=== PATIENT | male | born 1965 | race Caucasian/White ===

== ENCOUNTER 2020-10-21 09:12 | Emergency (ER) | payer MEDICAID, SELFPAY ==
[2020-10-21 09:15] VITALS: BP 117/90; PULSE 58; RESP 15; TEMP 36.8; O2SAT 98; BMI 21.1
[2020-10-21 09:22] VITALS: BP 117/90; PULSE 62; RESP 14; O2SAT 97
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
--- NOTE | 2020-10-21 09:30 | CT_ITS ---
WS: [id number] CT HEAD NONCONTRAST HISTORY: dizziness TECHNIQUE: Contiguous axial imaging performed through the brain in 2.5 mm imaging. Bone and soft tiss ue windows. Sagittal and coronal reformats reviewed. All CT scans at [facility] use at ast one of these dose optimization techniques: automated exposure control; mA and/or kV adjustment pe r patient size (includes targeted exams where dose is matched to clinical indication); or iterative r econstruction. DLP: 801.98 mGy.cm COMPARISON: None available. No acute intracranial hemorrhage, midline shift or mass effect. Large RIGHT MCA territory infarct. Encephalomalacia involving large portion of the RIGHT temporal lob e. There are additional infarcts extending along the RIGHT nagel radiata and through the basal gangl ia. Prior LEFT thalamic lacunar infarct. No new area of sulcal effacement. Ventricles: Mild ex vacuole dilatation of the RIGHT lateral ventricle. Extensive atherosclerotic changes within the intracranial carotid arteries. Abrupt termination of the RIGHT MCA. Paranasal sinuses: As visualized are clear. Mastoid air cells: Well pneumatized. Calvarium and scalp: Skull is intact with no soft tissue edema or swelling. CT/CT head wo con* [id number] IMPRESSION: 1. No acute intracranial hemorrhage or edema. 2. Large remote RIGHT MCA territory infarct with additional lacunar infarcts i n the RIGHT basal ganglia. Prior LEFT thalamic lacunar infarct. 3. No acute intracranial findings.
--- NOTE | 2020-10-21 09:31 | ECG_ITS ---
[facility] Test Date: 2020-10-21 Pat Name: Jhon Wallace Department: Room: Gender: Male Circulator: : 1965 Requested By: Ella Odom Order Number: [id number] Lashon MD: Funmilayo Busch M.D. Measurements Intervals [place] Rate: 53 P: 69 FL: 184 QRS: 63 QRSD: 110 T: 79 QT: 451 QTc: 424 Interpretive Statements SINUS BRADYCARDIA POSSIBLE LEFT ATRIAL ENLARGEMENT [-0.1mV P-WAVE IN V1/V2] MODERATE INTRAVENTRICULAR CONDUCTION DELAY [105+ ms QRS DURATION, 80+ ms Q/S IN V1/V2, NO Q AND 60+ ms R IN I/aVL/V5/V6] No previous ECG available for comparison Electronically Signed On 10-22-2020 18:18:59 CDT by Funmilayo Busch M.D. [email or web address]
[2020-10-21 09:47] LABS: Basophils # 0.1 10^3/uL (0.0-0.1); Eosinophils # 0.3 10^3/uL (0.0-0.8); Eosinophils % 2.4 %; Hematocrit 48.1 % (42.0-52.0); Hemoglobin 16.1 g/dL (11.7-16.6); Lymphocytes # 3.6 10^3/uL (0.8-4.8); Mean Corpuscular HGB Conc 33.5 g/dL (30.0-36.0); Mean Corpuscular Hemoglobin 30.1 pg (28.0-34.0); Mean Corpuscular Volume 90.1 fl (80-94); Mean Platelet Volume 11.3 fL (7.4-10.4); Monocytes # 0.7 10^3/uL (0.2-0.9); Monocytes % 6.7 %; Neutrophils # 6.22 10^3/uL (1.8-7.7); Neutrophils % 56.7 %; Nucleated Red Blood Cells % 0 %; Platelet Count 187 10^3/cmm (130-400); Red Blood Count 5.34 10^6/uL (4.1-5.3); Red Cell Distribution Width 13.2 % (12.1-15.1)
[2020-10-21 09:57] LABS: Alanine Aminotransferase 12 U/L (0-41); Albumin Level 4.4 g/dL (3.5-5.2); Alkaline Phosphatase 94 IU/L (40-130); Anion Gap 13.5 (5-19); Aspartate Amino Transferase 14 U/L (0-40); Blood Urea Nitrogen 10 mg/dL (6-20); Calcium 8.6 mg/dL (8.5-10.5); Carbon Dioxide 27 mmol/L (22-29); Chloride 106 mmol/L (98-107); Globulin 1.9 g/dL (1.3-4.6); Glomerular Filtration Rate 100.4 mL/min (90-130); Glucose 101 mg/dL (65-115); Osmolality Calculated 295 mOsm/kg (285-295); Potassium 3.5 mmol/L (3.5-5.1); Sodium 143 mmol/L (136-145); Total Bilirubin 0.4 mg/dL (0.15-1.2); Total Protein 6.3 g/dL (6.6-8.7)
[2020-10-21 09:59] LABS: Alcohol Level < 10 mg/dL (0-10)
[2020-10-21 10:01] VITALS: BP 112/70; PULSE 61; RESP 12; O2SAT 97
[2020-10-21 10:01] LABS: Troponin(5th) Baseline 6 ng/L (0-15)
--- NOTE | 2020-10-21 10:15 | PC.PHAR ---
PT STATES HE TAKES CARE OF HIS OWN MEDICATIONS-PT STATES HE TAKES THE MEDICATIONS ENTERED
[2020-10-21 10:30] VITALS: BP 112/70; PULSE 56; RESP 12; O2SAT 96
== END 2020-10-21 10:30 | disposition home or self-care (01) ==
PROVIDERS: Emergency Provider Physician Assistant
DX: Z04.1 Encounter for examination and observation following transport accident (principal); R42 Dizziness and giddiness; Z79.02 Long term (current) use of antithrombotics/antiplatelets; Z79.82 Long term (current) use of aspirin; V89.2XXA Person injured in unspecified motor-vehicle accident, traffic, initial encounter
CPT/HCPCS: 70450; 80053; 80307; 84484; 85025; 93005; 99283

== ENCOUNTER 2024-01-14 06:18 | Emergency (ER) | payer MEDICARE, SELFPAY ==
[2024-01-14 06:19] VITALS: BP 128/89; PULSE 73; RESP 22; TEMP 36.6; O2SAT 96; BMI 20.3
--- NOTE | 2024-01-14 06:27 | CTR_ITS ---
PROCEDURE INFORMATION: Exam: CT Head Without Contrast Exam date and time: 01/14/2024 6:35 AM Age: 58 years old Clinical indication: Stroke-like symptoms; Lt lower extremity weakness; Additional info: Symptoms of acute stroke TECHNIQUE: Imaging protocol: Computed tomography of the head without contrast. Radiation optimization: All CT scans at this facility use at least one of these dose optimization techniques: automated exposure control; mA and/or kV adjustment per patient size (includes targeted exams where dose is matched to clinical indication); or iterative reconstruction. Other technique: STROKE PROTOCOL was implemented. COMPARISON: CT head wo con* [id number] 10/21/2020 9:34 AM RADIATION DOSE METRICS: Total DLP (mGy-cm): 1023.63 FINDINGS: Brain: There is chronic infarct in the right temporal lobe and corpus striatum. There is no midline shift, acute hemorrhage, extra-axial fluid collection or acute lobar infarct. Cerebral ventricles: There is atrophic dilatation of the frontal horn and anterior body of the right lateral ventricle. Paranasal sinuses: Mucosal thickening and opacities noted within frontal recesses and ethmoid air cells. Mastoid air cells: Visualized mastoid air cells are well aerated. Bones: Unremarkable. No acute fracture. Soft tissues: Unremarkable. CT/CT head thrombolytic [id number] IMPRESSION: No acute intracranial process. ASSESSMENT: ASPECTS ([place] Stroke Program Early CT Score) is 10.
--- NOTE | 2024-01-14 06:28 | ED_ITS ---
HPI - Weakness 2 General: Chief complaint: Weakness Stated complaint: Left Leg weakness Time Seen by Provider: 01/14/24 06:23 History of Present Illness: 58-year-old male presents emergency room complaining of weakness. Called EMS reporting generalized weakness when EMS encountered him he was ambulatory EMS reported and he confirms that he was able to walk and get into the ambulance under his own power. He tells me he had left hand weakness right arm weakness and bilateral leg weakness. He had not fallen. No chest pain no other symptoms. No facial asymmetry no aphasia. No ataxia at this time. The symptoms very during exam and his NIH difficult to score because of bilateral varying symptoms. Associated symptoms: Denies chest pain, chills, dysuria or fever(s) Review of Systems 2 Const: Denies: fever(s) or chills Card: Denies: chest pain Resp: Denies: dyspnea GI: Denies: abdominal pain : Denies: dysuria, urinary frequency or urinary urgency Musc: Denies: neck pain or back pain Skin/Breast: Denies: rash PFSH ED 2 PFSH: Medical History (Updated 01/14/24 @ 09:23 by Israel Flores DO) History of CVA in adulthood Physical Exam 2 Const: COMMON NORMALS: no acute distress GENERAL APPEARANCE: cooperative and comfortable ORIENTATION/CONSCIOUSNESS: Yes awake, Yes oriented to person, Yes oriented to place and Yes oriented to time HENMT: COMMON NORMALS: normocephalic, atraumatic and hearing grossly normal bilaterally HEAD & SCALP: normocephalic and atraumatic Resp: COMMON NORMALS: normal respiratory effort, No retractions, No use of accessory muscles and clear to auscultation bilaterally AUSCULTATION: clear to auscultation bilaterally Cardio: COMMON NORMALS: regular rate, regular rhythm and No murmurs present (Cardio) RATE: regular rate RHYTHM: regular rhythm GI: COMMON NORMALS: Soft to palpation and No hepatosplenomegaly present A USCULTATION: Yes normoactive bowel sounds PALPATION: Yes Soft to palpation, No Tenderness to palpation present (GI), No Guarding due to palpation present (GI) and Yes No hepatosplenomegaly present Extremity: COMMON NORMALS: normal to inspection, capillary refill normal, no clubbing, cyanosis or edema, no calf tenderness and no pedal edema Neuro: SENSORIUM/ORIENTATION: Yes oriented to person, Yes oriented to place and Yes oriented to time Skin: COMMON NORMALS: no rashes or lesions noted GENERAL SKIN EXAM: no rashes or lesions noted Course 2 Vital Signs: Vital signs: Vital Signs Temperature 97.8 F 01/14/24 06:19 Pulse Rate 73 01/14/24 06:19 Respiratory Rate 22 H 01/14/24 06:19 Blood Pressure 128/89 01/14/24 06:19 Pulse Oximetry 96 01/14/24 06:19 Oxygen Delivery Me thod Room Air 01/14/24 06:19 MDM - Weakness Medical Decision Making Exam for stroke inconsistent, patient had bilateral and consistent symptoms. He is observed moving his arms and the legs without difficulty with no ataxia but and when specifically tested has bilateral arm drift and weakness leg weakness and varying degrees of loss of sensation on both the left and the right side. While he does have a stroke score listed all of his findings were bilateral to some extent and varying. Patient was able to ambulate without ataxia or weakness. CT showed old stroke no new bleeding. Repeat exam prior to discharge he symmetrical with no unilateral findings. Will discharge the patient home continue his dual platelet therapy and statin therapy as well as his antihypertensives. And follow-up with primary care as soon as he is able. Given his presenting symptoms do not believe that this was a TIA or CVA. Medical Records I reviewed the patient's medical records. Lab Data I reviewed the patient's lab results. 01/14/24 06:49 01/14/24 06:[address] 01/14/24 06:27 IMPRESSION: No acute intracranial process. ASSESSMENT: ASPECTS (Yusra Stroke Program Early CT Score) is 10. Laboratory Results WBC 5.98 10^3/uL (3.29-11.43) 01/14/24 06:49 RBC 4.89 10^6/uL (3.85-5.65) 01/14/24 06:49 Hgb 15.00 g/dL (11.27-16.99) 01/14/24 06:49 Hct 43.5 % (37-53) 01/14/24 06:49 MCV 89.0 fl (82-101) 01/14/24 06:49 MCH 30.7 pg (27-33) 01/14/24 06:49 MCHC 34.5 g/dL (30-55) 01/14/24 06:49 RDW 13.2 % (12.1-15.1) 01/14/24 06:49 Plt Count 168 10^3/cmm (157-399) 01/14/24 06:49 MPV 10.4 fL (7.4-10.4) 01/14/24 06:49 Neut % (Auto) 54.1 % 01/14/24 06:49 Lymph % (Auto) 33.6 % 01/14/24 06:49 [place] % (Auto) 7.4 % 01/14/24 06:49 Eos % (Auto) 4.2 % 01/14/24 06:49 Baso % (Auto) 0.7 % 01/14/24 06:49 Neut # (Auto) 3.24 10^3/uL (1.8-7.7) 01/14/24 06:49 Lymph # (Auto) 2.0 10^3/uL (0.8-4.8) 01/14/24 06:49 [place] # (Auto) 0.4 10^3/uL (0.2-0.9) 01/14/24 06:49 Eos # (Auto) 0.3 10^3/uL (0.0-0.8) 01/14/24 06:49 Baso # (Auto) 0.0 10^3/uL (0.0-0.1) 01/14/24 06:49 Nucleated RBC % (auto) 0 % 01/14/24 06:49 Nucleated RBCs # 0.0 /100WBC 01/14/24 06:49 PT 13.70 SECONDS (12.1-14.9) 01/14/24 06:49 INR 1.02 (0.8-1.2) 01/14/24 06:49 APTT 30.3 SECONDS (23.9-36.7) 01/14/24 06:49 Sodium 142 mmol/L (136-145) 01/14/24 06:49 Potassium 3.4 mmol/L (3.5-5.1) L 01/14/24 06:49 Chloride 105 mmol/L (98-107) 01/14/24 06:49 Carbon Dioxide 28 mmol/L (22-29) 01/14/24 06:49 Anion Gap 12.4 (5-19) 01/14/24 06:49 BUN 10 mg/dL (6-20) 01/14/24 06:49 Creatinine 0.8 mg/dL (0.7-1.2) 01/14/24 06:49 GFR Calculation 99.3 mL/min (90-130) 01/14/24 06:49 Glucose 87 mg/dL (65-115) 01/14/24 06:49 POC Glucose 88 mg/dL (70-110) 01/14/24 06:44 Calculated Osmolality 292 mOsm/kg (285-295) 01/14/24 06:49 Calcium 8.4 mg/dL (8.5-10.5) L 01/14/24 06:49 Total Bilirubin 0.4 mg/dL (0.15-1.2) 01/14/24 06:49 AST 15 U/L (0-40) 01/14/24 06:49 ALT 10 U/L (0-41) 01/14/24 06:49 Alkaline Phosphatase 91 U/L (40-130) 01/14/24 06:49 Total Protein 5.9 g/dL (6.6-8.7) L 01/14/24 06:49 Albumin 3.9 g/dL (3.5-5.2) 01/14/24 06:49 Globulin 2.0 g/dL (1.3-4.6) 01/14/24 06:49 Urine Color Yellow (Yellow) 01/14/24 07:51 Urine Appearance Clear (CLEAR) 01/14/24 07:51 Urine pH 6.5 (5-7) 01/14/24 07:51 Ur Specific [place] 1.016 (1.005-1.030) 01/14/24 07:51 Urine Protein Negative (Negative) 01/14/24 07:51 Urine Glucose (UA) Negative (Normal) 01/14/24 07:51 Urine Ketones Negative (Negative) 01/14/24 07:51 Urine Blood Non-haemolysed trace (Negative) 01/14/24 07:51 Urine Nitrate Negative (Negative) 01/14/24 07:51 Urine Bilirubin Negative (Negative) 01/14/24 07:51 Urine Urobilinogen 1.0 mg/dL (Negative) 01/14/24 07:51 Ur Leukocyte Esterase Negative (Negative) 01/14/24 07:51 Urine RBC 3-5 /hpf (0-2) 01/14/24 07:51 Urine WBC 0-5 /hpf (0-5) 01/14/24 07:51 Ur Squamous Epith Cells 0-5 /hpf (0-5) 01/14/24 07:51 Amorphous Sediment Not Reportable 01/14/24 07:51 Urine Bacteria None seen /hpf (NONE) 01/14/24 07:51 Hyaline Casts 0.81 /lpf 01/14/24 07:51 Urine Opiates Screen Negative ng/mL (Negative) 01/14/24 07:51 Ur Barbiturates Screen Negative ng/mL (Negative) 01/14/24 07:51 Ur Phencyclidine Scrn Negative ng/mL (Negative) 01/14/24 07:51 Ur Amphetamines Screen Negative ng/mL (Negative) 01/14/24 07:51 U Benzodiazepines Scrn Negative ng/mL (Negative) 01/14/24 07:51 Urine Cocaine Screen Negative ng/mL (Negative) 01/14/24 07:51 U Marijuana (THC) Screen Positive ng/mL (Negative) H 01/14/24 07:51 All radiology interpretation(s) finalized by discharge Discharge Plan Discharge Patient Disposition: Home Clinical Impression: Weakness of both arms, Weakness of both legs Condition: Stable Prescriptions: No Action atorvastatin 80 mg tablet 80 mg PO QPM clopidogrel 75 mg tablet 75 mg PO QPM amlodipine 5 mg tablet 5 mg PO QPM aspirin [Aspir-81] 81 mg Tablet,Delayed Release (Dr/Ec) 81 mg PO QPM mirtazapine 7.5 mg tablet 7.5 mg PO QPM Discharge Orders: Discharge ED (Routine); Ordered 01/14/24 Ordered By: Israel Flores Patient Instructions: Opioid Safety, Pain Management Activity Restrictions/Additional Instructions: Thank you for choosing [facility] for your healthcare needs today. It is very important that you follow up as instructed or that you return to the Emergency Department should you have concerns or if your condition changes or worsens in any way. You were seen today with a concern about a stroke. Your exam weakness is on the arms and the legs bilaterally that were not consistent with a stroke. CT of your head did not show any acute findings. Repeat exam prior to discharge there were no focal findings. It is recommended that you continue the aspirin Plavix and atorvastatin. Continue to carefully control your blood pressure follow-up with your primary care doctor within the next week. Coding Level of Care Code ED Director Advanced for Siag Fwd Related Data Home Medications Medication Instructions Recorded Confirmed amlodipine 5 mg tablet 5 mg PO QPM 10/21/20 01/14/24 aspirin 81 mg tablet,delayed 81 mg PO QPM 10/21/20 01/14/24 release atorvastatin 80 mg tablet 80 mg PO QPM 10/21/20 01/14/24 clopidogrel 75 mg tablet 75 mg PO QPM 10/21/20 01/14/24 mirtazapine 7.5 mg tablet 7.5 mg PO QPM 10/21/20 01/14/24 Allergies Allergy/AdvReac Type Severity Reaction Status Date / Time Penicillins Allergy ALGY-Anaphy Verified 10/21/20 10:15 laxis seafood Allergy ALGY-Anaphy Uncoded 10/21/20 09:21 laxis NIH stroke score NIHSS Level Of Consciousness - 1a: 0 Level Of Consciousness Questions - 1b: Both Correct Level Of Consciousness Commands - 1c: Both Correct Best Gaze - 2: Normal Visual Weaver - 3: No Visual Loss Facial Palsy - 4: Normal Motor Arm Right - 5: Drift Motor Arm Left - 5: Drift Motor Leg Right - 6: Drift Motor Leg Left - 6: Drift Limb Ataxia - 7: Absent Sensory - 8: Mild To Moderate Loss (Bilateral) Best Language - 9: No Aphasia Dysarthia - 10: Normal Extinction And Inattention - 11: 0 Score Total Score: 5
--- NOTE | 2024-01-14 06:31 | ECG_ITS ---
[facility]: 2024-01[facility]14 Pat Name: Jhon Wallace Department: Room: Gender: Male Tile Professional: : 1965 Requested By: Israel Bangura Order Number: [id number] Lashon MD: Johnny Johnson M.D. Measurements Intervals [place] Rate: 64 P: 60 AK: 172 QRS: 45 QRSD: 109 T: 69 QT: 406 QTc: 421 Interpretive Statements SINUS RHYTHM WITH OCCASIONAL VENTRICULAR PREMATURE COMPLEXES POSSIBLE LEFT ATRIAL ENLARGEMENT [-0.1mV P-WAVE IN V1/V2] Compared to ECG 10/21/2020 09:46:07 Ventricular premature complex(es) now present Sinus bradycardia no longer present Intraventricular conduction delay no longer present Electronically Signed On 01-19-2024 16:05:41 BODS DEVELOPER by Johnny Johnson M.D. [email or web address]
[2024-01-14 06:47] LABS: Glucose Point of Care 88 mg/dL (70-110)
[2024-01-14 06:58] LABS: Basophils % 0.7 %; Eosinophils # 0.3 10^3/uL (0.0-0.8); Eosinophils % 4.2 %; Hematocrit 43.5 % (37-53); Lymphocytes % 33.6 %; Mean Corpuscular HGB Conc 34.5 g/dL (30-55); Mean Corpuscular Hemoglobin 30.7 pg (27-33); Mean Platelet Volume 10.4 fL (7.4-10.4); Monocytes # 0.4 10^3/uL (0.2-0.9); Monocytes % 7.4 %; Neutrophils # 3.24 10^3/uL (1.8-7.7); Neutrophils % 54.1 %; Nucleated Red Blood Cells % 0 %; Platelet Count 168 10^3/cmm (157-399); Red Blood Count 4.89 10^6/uL (3.85-5.65); Red Cell Distribution Width 13.2 % (12.1-15.1); White Blood Count 5.98 10^3/uL (3.29-11.43)
--- NOTE | 2024-01-14 07:04 | PC.NURSE ---
this RN took over pt care @ [id number] from BERTA Suero
[2024-01-14 07:07] LABS: INR 1.02 (0.8-1.2)
[2024-01-14 07:08] LABS: Partial Thromboplastin Time 30.3 SECONDS (23.9-36.7)
--- NOTE | 2024-01-14 07:08 | PC.NURSE ---
this RN took over pt care @ [id number] from BERTA Suero
[2024-01-14 07:11] LABS: Alanine Aminotransferase 10 U/L (0-41); Albumin Level 3.9 g/dL (3.5-5.2); Alkaline Phosphatase 91 U/L (40-130); Anion Gap 12.4 (5-19); Aspartate Amino Transferase 15 U/L (0-40); Blood Urea Nitrogen 10 mg/dL (6-20); Calcium 8.4 mg/dL (8.5-10.5); Carbon Dioxide 28 mmol/L (22-29); Chloride 105 mmol/L (98-107); Creatinine Clr Calc Pharmacy 105.0278; Glomerular Filtration Rate 99.3 mL/min (90-130); Glucose 87 mg/dL (65-115); Osmolality Calculated 292 mOsm/kg (285-295); Potassium 3.4 mmol/L (3.5-5.1); Sodium 142 mmol/L (136-145); Total Bilirubin 0.4 mg/dL (0.15-1.2); Total Protein 5.9 g/dL (6.6-8.7)
[2024-01-14 08:06] LABS: Bilirubin Urine Negative (Negative); Blood Urine Non-haemolysed trace (Negative); Glucose Urine UA Negative (Normal); Ketones Urine Negative (Negative); Leukocyte Esterase Urine Negative (Negative); Nitrate Urine Negative (Negative); Protein Urine Negative (Negative); Specific Gravity, Urine 1.016 (1.005-1.030); Urine Appearance Clear (CLEAR); Urine Color Yellow (Yellow); pH Urine 6.5 (5-7)
[2024-01-14 08:12] LABS: Amphetamines Screen Urine Negative (Negative); Barbiturates Screen Urine Negative (Negative); Benzodiazepines Screen Urine Negative (Negative); Cocaine Screen Urine Negative (Negative); Opiate Screen Urine Negative (Negative); PCP Screen Urine Negative (Negative); THC Screen Urine Positive (Negative)
[2024-01-14 08:17] LABS: Add Urine Microscopic? YES; Bacteria Urine None Seen /hpf; Hyaline Casts Urine 0.81 /lpf; Squamous Epithelial Cell Urine 0-5 /hpf (0-5); WBC Urine 0-5 /hpf (0-5)
[2024-01-14 08:30] VITALS: PULSE 51; O2SAT 97
--- NOTE | 2024-01-14 08:45 | PC.NURSE ---
provider requested ambulation trial on pt, pt was able to ambulate from room approx 25 feet down the hallway and 25 feet back into his room. pt was steady on his feet. provider notified.
[2024-01-14 09:44] VITALS: BP 145/69; PULSE 49; O2SAT 96
== END 2024-01-14 09:45 | disposition home or self-care (01) ==
PROVIDERS: Emergency Provider Family Medicine
DX: R53.1 Weakness (principal); R29.705 NIHSS score 5; Z86.73 Personal history of transient ischemic attack (TIA), and cerebral infarction without residual deficits
CPT/HCPCS: 36415; 36416; 70450; 80053; 80306; 81001; 82962; 85025; 85610; 85730; 93005; 99284

== ENCOUNTER 2024-01-14 17:04 | Inpatient (IN) | payer MEDICARE, SELFPAY ==
[2024-01-14 17:17] VITALS: BP 168/82; PULSE 84; RESP 18; TEMP 36.9; O2SAT 94; BMI 21.7
--- NOTE | 2024-01-14 17:19 | W.ED.PSYCHS ---
HPI - Psych General: Chief Complaint: Psychiatric Symptoms Stated Complaint: SI w/crisis center Time Seen by Provider: 01/14/24 17:06 Source: patient Mode of arrival: ambulatory Limitations: no limitations History of Present Illness: 58-year-old male who sent here from crisis center under 96-hour hold for suicidal ideations he states he has been having severely increased depression has been having thoughts to kill himself by either shooting himself or stepping out in front of traffic. He denies any worse improved factors denies any previous admissions in the past. Associated symptoms: Reports depression and suicidal ideation Related Data Home Medications Medication Instructions Recorded Confirmed amlodipine 5 mg tablet 5 mg PO QPM 10/21/20 01/14/24 aspirin 81 mg tablet,delayed 81 mg PO QPM 10/21/20 01/14/24 release atorvastatin 80 mg tablet 80 mg PO QPM 10/21/20 01/14/24 clopidogrel 75 mg tablet 75 mg PO QPM 10/21/20 01/14/24 mirtazapine 7.5 mg tablet 7.5 mg PO QPM 10/21/20 01/14/24 Allergies Allergy/AdvReac Type Severity Reaction Status Date / Time Penicillins Allergy ALGY-Anaphy Verified 10/21/20 10:15 laxis seafood Allergy ALGY-Anaphy Uncoded 10/21/20 09:21 laxis Review of Systems Const: Denies: fever(s), chills, body aches or change in appetite ENMT: Denies: throat pain or dental pain Card: Denies: chest pain Resp: Denies: dyspnea GI: Denies: abdominal pain, nausea, vomiting or diarrhea Musc: Denies: neck pain or back pain Skin/Breast: Denies: rash Neuro: Denies: headache(s) Psych: Reports: depression and suicidal ideation [facility] ED PFSH: Medical History History of CVA in adulthood Physical Exam Const: COMMON NORMALS: no acute distress, patient oriented x3 and healthy appearing HENMT: COMMON NORMALS: normocephalic and atraumatic HEAD & SCALP: normocephalic and atraumatic Neck/C-Spine: COMMON NORMALS: full ROM and supple Chest: COMMONS NORMALS: normal inspection of the chest Resp: COMMON NORMALS: normal respiratory effort Cardio: COMMON NORMALS: regular rate RATE: regular rate Extremity: COMMON NORMALS: normal to inspection and full ROM Neuro: COMMON NORMALS: patient oriented x3, moves all extremities and no focal motor deficits Psych: COMMON NORMALS: mental status grossly normal, Normal thought process present and cooperative THOUGHT PROCESS: Normal thought process present THOUGHT CONTENT: Yes Suicidality present Skin: COMMON NORMALS: no rashes or lesions noted and no wounds GENERAL SKIN EXAM: no rashes or lesions noted Course Vital Signs: Vital signs: Vital Signs Temperature 98.4 F 01/14/24 17:17 Pulse Rate 84 01/14/24 17:17 Respiratory Rate 18 01/14/24 17:17 Blood Pressure 168/82 01/14/24 17:17 Pulse Oximetry 94 01/14/24 17:17 Oxygen Delivery Me thod Room Air 01/14/24 17:17 [facility] - Psych Medical Decision Making Patient presents here with suicidal ideation he is placed on a 6-hour hold is medically cleared I talked to the psychiatrist and will admit the psych yuan. Medical Records I reviewed the patient's medical records. Lab Data I reviewed the patient's lab results. 01/14/24 18:57 01/14/24 18:57 Laboratory Results WBC 6.09 10^3/uL (3.29-11.43) 01/14/24 18:57 RBC 4.72 10^6/uL (3.85-5.65) 01/14/24 18:57 Hgb 14.90 g/dL (11.27-16.99) 01/14/24 18:57 Hct 43.2 % (37-53) 01/14/24 18:57 MCV 91.5 fl (82-101) 01/14/24 18:57 MCH 31.6 pg (27-33) 01/14/24 18:57 MCHC 34.5 g/dL (30-55) 01/14/24 18:57 RDW 13.3 % (12.1-15.1) 01/14/24 18:57 Plt Count 160 10^3/cmm (157-399) 01/14/24 18:57 MPV 10.2 fL (7.4-10.4) 01/14/24 18:57 Neut % (Auto) 59.5 % 01/14/24 18:57 Lymph % (Auto) 28.9 % 01/14/24 18:57 [place] % (Auto) 6.7 % 01/14/24 18:57 Eos % (Auto) 3.6 % 01/14/24 18:57 Baso % (Auto) 1.1 % 01/14/24 18:57 Neut # (Auto) 3.62 10^3/uL (1.8-7.7) 01/14/24 18:57 Lymph # (Auto) 1.8 10^3/uL (0.8-4.8) 01/14/24 18:57 [place] # (Auto) 0.4 10^3/uL (0.2-0.9) 01/14/24 18:57 Eos # (Auto) 0.2 10^3/uL (0.0-0.8) 01/14/24 18:57 Baso # (Auto) 0.1 10^3/uL (0.0-0.1) 01/14/24 18:57 Nucleated RBC % (auto) 0 % 01/14/24 18:57 Nucleated RBCs # 0.0 /100WBC 01/14/24 18:57 Sodium 142 mmol/L (136-145) 01/14/24 18:57 Potassium 4.3 mmol/L (3.5-5.1) 01/14/24 18:57 Chloride 103 mmol/L (98-107) 01/14/24 18:57 Carbon Dioxide 30 mmol/L (22-29) H 01/14/24 18:57 Anion Gap 13.3 (5-19) 01/14/24 18:57 BUN 12 mg/dL (6-20) 01/14/24 18:57 Creatinine 0.9 mg/dL (0.7-1.2) 01/14/24 18:57 GFR Calculation 86.7 mL/min (90-130) L 01/14/24 18:57 Glucose 106 mg/dL (65-115) 01/14/24 18:57 Calculated Osmolality 294 mOsm/kg (285-295) 01/14/24 18:57 Calcium 8.6 mg/dL (8.5-10.5) 01/14/24 18:57 Total Bilirubin 0.3 mg/dL (0.15-1.2) 01/14/24 18:57 AST 17 U/L (0-40) 01/14/24 18:57 ALT 12 U/L (0-41) 01/14/24 18:57 Alkaline Phosphatase 96 U/L (40-130) 01/14/24 18:57 Total Protein 5.6 g/dL (6.6-8.7) L 01/14/24 18:57 Albumin 3.9 g/dL (3.5-5.2) 01/14/24 18:57 Globulin 1.7 g/dL (1.3-4.6) 01/14/24 18:57 Salicylates < 0.3 mg/dL (3-10) L 01/14/24 18:57 Urine Opiates Screen Negative ng/mL (Negative) 01/14/24 18:15 Acetaminophen < 5.0 ug/mL (10-30) L 01/14/24 18:57 Ur Barbiturates Screen Negative ng/mL (Negative) 01/14/24 18:15 Ur Phencyclidine Scrn Negative ng/mL (Negative) 01/14/24 18:15 Ur Amphetamines Screen Negative ng/mL (Negative) 01/14/24 18:15 U Benzodiazepines Scrn Negative ng/mL (Negative) 01/14/24 18:15 Urine Cocaine Screen Negative ng/mL (Negative) 01/14/24 18:15 U Marijuana (THC) Screen Positive ng/mL (Negative) H 01/14/24 18:15 Ethyl Alcohol < 10 mg/dL (0-10) 01/14/24 18:57 No radiology studies performed this visit Discharge Plan Discharge Patient Disposition: Admitted As Inpatient Clinical Impression: Suicidal ideation Condition: Stable Coding Level of Care Code ED Reheat Furnace Operator for Roseanne Linares
--- NOTE | 2024-01-14 18:32 | PC.NURSE ---
96 HR rights reviewed @1750. All education reviewed with patient. No verbalized concerns at this time. Pt verbalized uunderstandment of 96 hr hold process. Patient copy left at bedside with patient. Water provided to patient. No other needs at this time.
[2024-01-14 19:15] LABS: Basophils # 0.1 10^3/uL (0.0-0.1); Basophils % 1.1 %; Eosinophils # 0.2 10^3/uL (0.0-0.8); Eosinophils % 3.6 %; Hematocrit 43.2 % (37-53); Lymphocytes # 1.8 10^3/uL (0.8-4.8); Lymphocytes % 28.9 %; Mean Corpuscular HGB Conc 34.5 g/dL (30-55); Mean Corpuscular Hemoglobin 31.6 pg (27-33); Mean Corpuscular Volume 91.5 fl (82-101); Mean Platelet Volume 10.2 fL (7.4-10.4); Monocytes # 0.4 10^3/uL (0.2-0.9); Monocytes % 6.7 %; Neutrophils # 3.62 10^3/uL (1.8-7.7); Neutrophils % 59.5 %; Nucleated Red Blood Cells % 0 %; Platelet Count 160 10^3/cmm (157-399); Red Blood Count 4.72 10^6/uL (3.85-5.65); Red Cell Distribution Width 13.3 % (12.1-15.1); White Blood Count 6.09 10^3/uL (3.29-11.43)
[2024-01-14 19:23] LABS: Amphetamines Screen Urine Negative (Negative); Barbiturates Screen Urine Negative (Negative); Benzodiazepines Screen Urine Negative (Negative); Cocaine Screen Urine Negative (Negative); Opiate Screen Urine Negative (Negative); PCP Screen Urine Negative (Negative); THC Screen Urine Positive (Negative)
[2024-01-14 19:33] LABS: Alanine Aminotransferase 12 U/L (0-41); Albumin Level 3.9 g/dL (3.5-5.2); Alkaline Phosphatase 96 U/L (40-130); Blood Urea Nitrogen 12 mg/dL (6-20); Calcium 8.6 mg/dL (8.5-10.5); Carbon Dioxide 30 mmol/L (22-29); Chloride 103 mmol/L (98-107); Globulin 1.7 g/dL (1.3-4.6); Glomerular Filtration Rate 86.7 mL/min (90-130); Glucose 106 mg/dL (65-115); Osmolality Calculated 294 mOsm/kg (285-295); Sodium 142 mmol/L (136-145); Total Bilirubin 0.3 mg/dL (0.15-1.2); Total Protein 5.6 g/dL (6.6-8.7)
[2024-01-14 19:37] LABS: Acetaminophen < 5.0 ug/mL (10-30); Alcohol Level < 10 mg/dL (0-10); Salicylate < 0.3 mg/dL (3-10)
[2024-01-14 19:38] LABS: Anion Gap 13.3 (5-19); Aspartate Amino Transferase 17 U/L (0-40); Potassium 4.3 mmol/L (3.5-5.1)
[2024-01-14 20:37] VITALS: BP 128/82; PULSE 70; RESP 19; TEMP 36.7; O2SAT 96
[2024-01-14 22:00] VITALS: BP 128/82; PULSE 70; RESP 18; TEMP 36.7; O2SAT 96
[2024-01-14] MEDS: clopidogrel 75 mg Tablet PO (22:44)
[2024-01-14] MEDS: amlodipine 5 mg Tablet PO (22:44)
[2024-01-14] MEDS: mirtazapine 15 mg Tablet 7.5 MG PO (22:44)
[2024-01-14] MEDS: atorvastatin 40 mg Tablet 80 MG PO (22:45)
[2024-01-14] MEDS: nicotine 4 mg lozenge MUCOUS MEM (22:48)
[2024-01-14] MEDS: trazodone 50 mg Tablet PO (22:49)
[2024-01-15 06:00] VITALS: BP 134/75; PULSE 71; RESP 18; TEMP 36.7; O2SAT 96
--- NOTE | 2024-01-15 07:39 | W.PM.NPUH&PS ---
Providers/Chief Complaint Admitting Physician: Mark Evans MD Chief Complaint: SI w/crisis center HPI NPU History of Present Illness Jhon Wallace is a 58 year old male who presented to the emergency department with the following report: Chief Complaint: Psychiatric Symptoms Stated Complaint: SI w/crisis center Time Seen by Provider: 01/14/24 17:06 Source: patient Mode of arrival: ambulatory Limitations: no limitations History of Present Illness: 58-year-old male who sent here from crisis center under 96-hour hold for suicidal ideations he states he has been having severely increased depression has been having thoughts to kill himself by either shooting himself or stepping out in front of traffic. He denies any worse improved factors denies any previous admissions in the past. Associated symptoms: Reports depression and suicidal ideation He was admitted to the neuropsychiatric unit for definitive treatment of those issues. He is unknown to [facility] psychiatry through inpatient or outpatient services. He presented today reporting: Chief complaint The patient was recommended to seek help due to difficulties in managing life after suffering multiple strokes and becoming homeless. History of the present complaint The patient, currently homeless, was advised to seek help at the hospital by an acquaintance he met in the park. He has been homeless for approximately seven months and has been struggling to get back on his feet. He expressed that his mental health would significantly improve if he had a stable place to live. Prior to his current situation, the patient had a stable job at [employer], which he lost after suffering multiple strokes. He mentioned that these strokes have caused him to have speech problems, particularly when he is nervous or tired, during which he starts to slur his words. The patient also experienced a significant traumatic event when a close friend in his house, which he reported as having a profound impact on him. He expressed that this event has caused him considerable distress and may have contributed to his current situation. In terms of substance use, the patient reported that he smokes cigarettes and marijuana. He used to consume alcohol but stopped after his strokes. He denied any history of using other drugs such as cocaine or amphetamines and has never been to a rehabilitation center. The patient described his mood as pretty good on the day of the consultation. He reported feeling a bit paranoid but denied any current thoughts of self-harm or harm to others. He also denied experiencing hallucinations. He attributed most of his issues to the societal disregard and mistreatment of homeless individuals. The patient has never been diagnosed with any mental health conditions and has never taken any medication for mental health. He has also never received any mental health treatment before. He expressed no intention of starting any medication for mental health. In terms of his personal life, the patient has been twice, with his longest relationship lasting ten years. He has no children. He holds a BA in [employer] from the [employer]. He has one sister who is currently in care home. His relationship with his father is strained, and he preferred not to discuss it further. The patient's current situation appears to be a combination of physical health issues, traumatic experiences, and socio-economic challenges. His resilience in the face of these adversities is noteworthy. Mental health history The patient has no prior history of mental health treatment or diagnosis. He has never been to a psychiatric hospital or taken medication for mental health. He has experienced recent bereavement, with a friend dying in his house, which has significantly affected him. Social history The patient is currently homeless and has been for seven months. He previously worked at [employer] but has been unable to work since suffering multiple strokes. He receives some financial support but it is not sufficient for housing. He has been twice, with the longest relationship lasting ten years. He has no children. He has a BA in [employer] from the [employer]. He has a sister who is currently in care home and a father with whom he has a strained relationship. He has a history of smoking cigarettes and cannabis, and used to consume alcohol before his strokes. He has no history of other drug use or rehab. Meds NPU Home Medications Medication Instructions Recorded Confirmed Last Taken Type amlodipine 5 mg tablet 5 mg PO QPM 10/21/20 01/14/24 1 Day Ago History ~01/13/24 aspirin 81 mg tablet,delayed 81 mg PO QPM 10/21/20 01/14/24 Unknown History release atorvastatin 80 mg tablet 80 mg PO QPM 10/21/20 01/14/24 1 Day Ago History ~01/13/24 clopidogrel 75 mg tablet 75 mg PO QPM 10/21/20 01/14/24 1 Day Ago History ~01/13/24 mirtazapine 7.5 mg tablet 7.5 mg PO QPM 10/21/20 01/14/24 1 Day Ago History ~01/13/24 Allergies Allergy/AdvReac Type Severity Reaction Status Date / Time Penicillins Allergy ALGY-Anaphy Verified 10/21/20 10:15 laxis seafood Allergy ALGY-Anaphy Uncoded 10/21/20 09:21 laxis PFS NPU PFSH: Medical History History of CVA in adulthood Mental Status Exam MSE Comments: This is a thin but well-nourished well-developed white male in hospital scrubs adequate grooming and limited eye contact. No abnormal movements except for psychomotor retardation and a noticeable limp demonstrating left sided weakness likely sequela from reported strokes. Additionally there may have been a motor tic in the form of a throat clearing. ?He was cooperative with exam in mild to moderate distress.? Speech was decreased rate and volume with a possible tic of a throat clearing at the end of statements.? Mood described as as depressed, his affect was congruent and subdued. Thought process was linear. Thought content: Patient denied current suicidal or homicidal ideation. There were no delusions reported or but some paranoia noted, he denied auditory or visual hallucinations. The patient reports feeling pretty good today. He denies any current thoughts of self-harm or harm to others. He reports feeling a bit paranoid but denies hearing voices or seeing things. He reports some issues with depression and anxiety. Attention and concentration were adequate and memory was mostly reliable but none were formally tested.? He is alert and oriented x 3.? Insight and judgment were limited and impulse control was impaired. Vitals/I&O/Wt Last Vital Signs Temp 98.0 F 01/15/24 06:00 Pulse 71 01/15/24 06:00 Resp 18 01/15/24 06:00 BP 134/75 01/15/24 06:00 Pulse Ox 96 01/15/24 06:00 O2 Del Method Room Air 01/15/24 06:00 Weight last 48 hrs Weight 72.575 kg Data NPU 01/14/24 18:57 01/14/24 18:57 A&P Assessment and plan (1) Suicidal ideation: (2) Adjustment disorder with mixed disturbance of emotions and conduct: (3) PTSD (post-traumatic stress disorder): (4) Depression: Plan This is a 58-year-old white male with no significant history of mental health or addiction challenges reported. The patient is dealing with substantial psychosocial stressors, including homelessness and post-cerebrovascular accident sequelae. He has no prior history of mental health treatment but is currently experiencing some symptoms of major depressive disorder and generalized anxiety disorder. He also reports experiencing paranoid ideation at times. 1. Continue current medications and evaluate if other medications are warranted. 2. Continue to-15 minute checks, 3.? Encourage individual, group and milieu therapy. 4.? Will attempt to gather collateral information. 5.we will work with social work team on possible options for discharge. Involuntary Hold Information 96 Hour Hold: 96 Hour Involuntary Admission: Yes 96 Hour Hold Ending Date: 01/21/24 96 Hour Hold Ending Time: 00:01 Attestations NPU Medical Necessity Statement*: Inpatient hospitalization is medically necessary and deemed to ?be ?the clinically appropriate intervention ?at this time.? We will monitor/initiate medications and make changes as indicated.? The patient will be in the hospital for over 2 midnights.? The patient?s likely length of stay 5-7 days. Coding Level of Care Code Acute Code for Chg Fwd Diagnoses Suicidal ideation R45.851 Adjustment disorder with mixed disturbance of emotions and conduct F43.25 PTSD (post-traumatic stress disorder) F43.10 Depression F32.A
[2024-01-15] MEDS: flu vacc pf 24-25 (6 mos+) SYRINGE 45 MCG IM (07:43)
[2024-01-15 14:00] VITALS: BP 115/70; PULSE 76; RESP 18; TEMP 36.6; O2SAT 96
[2024-01-15] MEDS: atorvastatin 40 mg Tablet 80 MG PO (17:26)
[2024-01-15] MEDS: amlodipine 5 mg Tablet PO (17:26)
[2024-01-15] MEDS: mirtazapine 15 mg Tablet 7.5 MG PO (17:26)
[2024-01-15] MEDS: clopidogrel 75 mg Tablet PO (17:26)
[2024-01-15] MEDS: ibuprofen 600 mg Tablet PO (20:26)
[2024-01-15] MEDS: trazodone 50 mg Tablet PO (20:26)
[2024-01-15 20:38] VITALS: BP 128/88; PULSE 72; RESP 16; TEMP 36.7; O2SAT 96
[2024-01-16 06:00] VITALS: BP 80/67; PULSE 72; RESP 18; TEMP 36.4; O2SAT 97
[2024-01-16 14:00] VITALS: BP 107/72; PULSE 61; RESP 16; TEMP 36.6; O2SAT 97
--- NOTE | 2024-01-16 15:45 | P.NPUPN_ITS ---
Subjective NPU 2 Subjective: Patient presented today reporting that he is doing fine and he is working with the social work team on options for discharge. He reports that he is glad that he came and that he feels confident that he can figure something out and not go deeper into these negative thoughts of self-loathing and self-harm. He reports that he does not have many supports out there and that he is hopeful that he can get connected with services be able to get back to being functional again. He denied any side effects to the medication. Mental Status Exam 2 MSE Comments: This is a thin but well-nourished well-developed white male in hospital scrubs adequate grooming and limited eye contact. No abnormal movements except for psychomotor retardation and a noticeable limp demonstrating left sided weakness likely sequela from reported strokes. Additionally there may have been a motor tic in the form of a throat clearing. ?He was cooperative with exam in mild to moderate distress.? Speech was decreased rate and volume with a possible tic of a throat clearing at the end of statements.? Mood described as as depressed, his affect was congruent and subdued. Thought process was linear. Thought content: Patient denied current suicidal or homicidal ideation. There were no delusions reported or but some paranoia noted, he denied auditory or visual hallucinations. The patient reports feeling pretty good today. He denies any current thoughts of self-harm or harm to others. He reports feeling a bit paranoid but denies hearing voices or seeing things. He reports some issues with depression and anxiety. Attention and concentration were adequate and memory was mostly reliable but none were formally tested.? He is alert and oriented x 3.? Insight and judgment were limited and impulse control was impaired. Vitals/I&O/Wt Last Vital Signs Temp 97.8 F 01/16/24 14:00 Pulse 61 01/16/24 14:00 Resp 16 01/16/24 14:00 BP 107/72 01/16/24 14:00 Pulse Ox 97 01/16/24 14:00 O2 Del Method Room Air 01/16/24 06:00 Weight last 48 hrs Weight 72.575 kg Data NPU 01/14/24 18:57 01/14/24 18:57 A&P Assessment and plan (1) Suicidal ideation: (2) Adjustment disorder with mixed disturbance of emotions and conduct: (3) PTSD (post-traumatic stress disorder): (4) Depression: Plan This is a 58-year-old white male with no significant history of mental health or addiction challenges reported. The patient is dealing with substantial psychosocial stressors, including homelessness and post-cerebrovascular accident sequelae. He has no prior history of mental health treatment but is currently experiencing some symptoms of major depressive disorder and generalized anxiety disorder. He also reports experiencing paranoid ideation at times. 1. Continue current medications and evaluate if other medications are warranted. 2. Continue to-15 minute checks, 3.? Encourage individual, group and milieu therapy. 4.? Will attempt to gather collateral information. 5.we will work with social work team on possible options for discharge. Involuntary Hold Information 2 96 Hour Hold: 96 Hour Involuntary Admission: Yes 96 Hour Hold Ending Date: 01/21/24 96 Hour Hold Ending Time: 00:01 Other Hold: Hold End Date: 01/28/24 Attestations NPU 2 Medical Necessity Statement*: Inpatient hospitalization is medically necessary and deemed to ?be ?the clinically appropriate intervention ?at this time.? We will monitor/initiate medications and make changes as indicated.?? The patient?s likely length of stay 4-6 days. Coding Level of Care Code Acute Code for Chg Fwd Diagnoses Suicidal ideation R45.851 Adjustment disorder with mixed disturbance of emotions and conduct F43.25 PTSD (post-traumatic stress disorder) F43.10 Depression F32.A
[2024-01-16] MEDS: clopidogrel 75 mg Tablet PO (17:12)
[2024-01-16] MEDS: mirtazapine 15 mg Tablet 7.5 MG PO (17:12)
[2024-01-16] MEDS: atorvastatin 40 mg Tablet 80 MG PO (17:12)
[2024-01-16] MEDS: amlodipine 5 mg Tablet PO (17:13)
[2024-01-16] MEDS: trazodone 50 mg Tablet PO (20:41)
[2024-01-16 20:52] VITALS: BP 146/89; PULSE 66; RESP 18; TEMP 36.7; O2SAT 99
[2024-01-17 06:00] VITALS: BP 124/76; PULSE 74; RESP 18; TEMP 36.3; O2SAT 98
[2024-01-17] MEDS: nicotine 21 mg Patch 1 PATCH TRANSDERMA (12:30)
[2024-01-17 14:00] VITALS: PULSE 97; RESP 18; TEMP 36.5; O2SAT 97
--- NOTE | 2024-01-17 16:48 | P.NPUPN_ITS ---
Subjective NPU 2 Subjective: Patient presented today reporting that he is doing pretty well. He reports he did talk to [facility] and is open to that as an option. He reports he would be excited about that as a plan. He denied any side effects to the medication and reports that he is sleeping fine. He reports that being in here has been a very good experience and is glad that he did follow his friends recommendation to come here and see if we can be helpful. We discussed the possibility of discharge once [facility] has given us the go ahead. Mental Status Exam 2 MSE Comments: This is a thin but well-nourished well-developed white male in hospital scrubs adequate grooming and limited eye contact. No abnormal movements except for psychomotor retardation and a noticeable limp demonstrating left sided weakness likely sequela from reported strokes. Additionally there may have been a motor tic in the form of a throat clearing. ?He was cooperative with exam in mild to moderate distress.? Speech was decreased rate and volume with a possible tic of a throat clearing at the end of statements.? Mood described as as depressed, his affect was congruent and subdued. Thought process was linear. Thought content: Patient denied current suicidal or homicidal ideation. There were no delusions reported or but some paranoia noted, he denied auditory or visual hallucinations. The patient reports feeling pretty good today. He denies any current thoughts of self-harm or harm to others. He reports feeling a bit paranoid but denies hearing voices or seeing things. He reports some issues with depression and anxiety. Attention and concentration were adequate and memory was mostly reliable but none were formally tested.? He is alert and oriented x 3.? Insight and judgment were limited and impulse control was impaired. Vitals/I&O/Wt Last Vital Signs Temp 97.7 F 01/17/24 14:00 Pulse 97 01/17/24 14:00 Resp 18 01/17/24 14:00 BP 124/76 01/17/24 06:00 Pulse Ox 97 01/17/24 14:00 O2 Del Method Room Air 01/17/24 14:00 Data NPU 01/14/24 18:57 01/14/24 18:57 A&P Assessment and plan (1) Suicidal ideation: (2) Adjustment disorder with mixed disturbance of emotions and conduct: (3) PTSD (post-traumatic stress disorder): (4) Depression: Plan This is a 58-year-old white male with no significant history of mental health or addiction challenges reported. The patient is dealing with substantial psychosocial stressors, including homelessness and post-cerebrovascular accident sequelae. He has no prior history of mental health treatment but is currently experiencing some symptoms of major depressive disorder and generalized anxiety disorder. He also reports experiencing paranoid ideation at times. 1. Continue current medications and evaluate if other medications are warranted. 2. Continue to-15 minute checks, 3.? Encourage individual, group and milieu therapy. 4.? Will attempt to gather collateral information. 5.we will work with social work team on possible options for discharge. Involuntary Hold Information 2 96 Hour Hold: 96 Hour Involuntary Admission: Yes 96 Hour Hold Ending Date: 01/21/24 96 Hour Hold Ending Time: 00:01 Other Hold: Hold End Date: 01/28/24 Attestations NPU 2 Medical Necessity Statement*: Inpatient hospitalization is medically necessary and deemed to ?be ?the clinically appropriate intervention ?at this time.? We will monitor/initiate medications and make changes as indicated.?? The patient?s likely length of stay 1-4 days. Coding Level of Care Code Acute Code for Chg Fwd Diagnoses Suicidal ideation R45.851 Adjustment disorder with mixed disturbance of emotions and conduct F43.25 PTSD (post-traumatic stress disorder) F43.10 Depression F32.A
[2024-01-17] MEDS: atorvastatin 40 mg Tablet 80 MG PO (17:59)
[2024-01-17] MEDS: clopidogrel 75 mg Tablet PO (17:59)
[2024-01-17] MEDS: mirtazapine 15 mg Tablet 7.5 MG PO (18:00)
[2024-01-17] MEDS: amlodipine 5 mg Tablet PO (18:00)
[2024-01-17 19:57] VITALS: BP 124/84; PULSE 70; RESP 18; TEMP 36.6; O2SAT 97
[2024-01-17] MEDS: ibuprofen 600 mg Tablet PO (21:33)
[2024-01-18] MEDS: trazodone 50 mg Tablet PO ×3 (02:55→22:26)
[2024-01-18 06:00] VITALS: BP 123/76; PULSE 75; RESP 16; TEMP 36.6; O2SAT 96
[2024-01-18] MEDS: ibuprofen 600 mg Tablet PO ×2 (11:02→20:39)
[2024-01-18 13:43] VITALS: BP 127/77; PULSE 73; RESP 16; TEMP 36.8; O2SAT 95
[2024-01-18] MEDS: nicotine 21 mg Patch 1 PATCH TRANSDERMA (15:46)
--- NOTE | 2024-01-18 16:49 | P.NPUPN_ITS ---
Subjective NPU 2 Subjective: Patient presented today reporting that he is doing well. He did have his interview with [facility] and [facility] have excepted him. He reports understanding that the plan is for discharge in the morning. He reports being thankful and optimistic about things going forward. He denied any side effects to his medication. Mental Status Exam 2 MSE Comments: This is a thin but well-nourished well-developed white male in hospital scrubs adequate grooming and limited eye contact. No abnormal movements except for psychomotor retardation and a noticeable limp demonstrating left sided weakness likely sequela from reported strokes. Additionally there may have been a motor tic in the form of a throat clearing. ?He was cooperative with exam in mild to moderate distress.? Speech was decreased rate and volume with a possible tic of a throat clearing at the end of statements.? Mood described as as depressed, his affect was congruent and subdued. Thought process was linear. Thought content: Patient denied current suicidal or homicidal ideation. There were no delusions reported or but some paranoia noted, he denied auditory or visual hallucinations. Attention and concentration were adequate and memory was mostly reliable but none were formally tested.? He is alert and oriented x 3.? Insight and judgment were limited and impulse control was impaired. Vitals/I&O/Wt Last Vital Signs Temp 98.2 F 01/18/24 13:43 Pulse 73 01/18/24 13:43 Resp 16 01/18/24 13:43 BP 127/77 01/18/24 13:43 Pulse Ox 95 01/18/24 13:43 O2 Del Method Room Air 01/18/24 13:43 Data NPU 01/14/24 18:57 01/14/24 18:57 A&P Assessment and plan (1) Suicidal ideation: (2) Adjustment disorder with mixed disturbance of emotions and conduct: (3) PTSD (post-traumatic stress disorder): (4) Depression: Plan This is a 58-year-old white male with no significant history of mental health or addiction challenges reported. The patient is dealing with substantial psychosocial stressors, including homelessness and post-cerebrovascular accident sequelae. He has no prior history of mental health treatment but is currently experiencing some symptoms of major depressive disorder and generalized anxiety disorder. He also reports experiencing paranoid ideation at times. 1. Continue current medications and evaluate if other medications are warranted. 2. Continue to-15 minute checks, 3.? Encourage individual, group and milieu therapy. 4.? Will attempt to gather collateral information. 5. Plan for discharge [facility] tomorrow. Involuntary Hold Information 2 96 Hour Hold: 96 Hour Involuntary Admission: Yes 96 Hour Hold Ending Date: 01/21/24 96 Hour Hold Ending Time: 00:01 Other Hold: Hold End Date: 01/28/24 Attestations NPU 2 Medical Necessity Statement*: Inpatient hospitalization is medically necessary and?the clinically appropriate intervention at this time.? We will monitor/initiate medications and make changes as indicated.?The patient?s likely length of stay 1 day. Coding Level of Care Code Acute Code for Chg Fwd Diagnoses Suicidal ideation R45.851 Adjustment disorder with mixed disturbance of emotions and conduct F43.25 PTSD (post-traumatic stress disorder) F43.10 Depression F32.A
[2024-01-18] MEDS: mirtazapine 15 mg Tablet 7.5 MG PO (17:11)
[2024-01-18] MEDS: clopidogrel 75 mg Tablet PO (17:15)
[2024-01-18] MEDS: atorvastatin 40 mg Tablet 80 MG PO (17:15)
[2024-01-18] MEDS: amlodipine 5 mg Tablet PO (17:15)
[2024-01-18] MEDS: hyDROXYzine 25 mg Capsule 50 MG PO (20:38)
[2024-01-18 21:00] VITALS: BP 119/70; PULSE 76; RESP 17; TEMP 36.8; O2SAT 98
[2024-01-19 06:00] VITALS: BP 123/73; PULSE 66; RESP 17; TEMP 36.7; O2SAT 96
--- NOTE | 2024-01-19 09:11 | W.PM.NPUDCS ---
Diagnoses at Discharge Discharge Diagnosis (1) Suicidal ideation: Status: Acute (2) Adjustment disorder with mixed disturbance of emotions and conduct: Status: Acute (3) PTSD (post-traumatic stress disorder): Status: Acute (4) Depression: Status: Acute Reason for Visit Reason for Visit: SI w/crisis center Brief History: History of Present Illness Jhon Wallace is a 58 year old male who presented to the emergency department with the following report: Chief Complaint: Psychiatric Symptoms Stated Complaint: SI w/crisis center Time Seen by Provider: 01/14/24 17:06 Source: patient Mode of arrival: ambulatory Limitations: no limitations History of Present Illness: 58-year-old male who sent here from crisis center under 96-hour hold for suicidal ideations he states he has been having severely increased depression has been having thoughts to kill himself by either shooting himself or stepping out in front of traffic. He denies any worse improved factors denies any previous admissions in the past. Associated symptoms: Reports depression and suicidal ideation He was admitted to the neuropsychiatric unit for definitive treatment of those issues. He is unknown to [facility] psychiatry through inpatient or outpatient services. He presented today reporting: Chief complaint The patient was recommended to seek help due to difficulties in managing life after suffering multiple strokes and becoming homeless. History of the present complaint The patient, currently homeless, was advised to seek help at the hospital by an acquaintance he met in the park. He has been homeless for approximately seven months and has been struggling to get back on his feet. He expressed that his mental health would significantly improve if he had a stable place to live. Prior to his current situation, the patient had a stable job at [employer], which he lost after suffering multiple strokes. He mentioned that these strokes have caused him to have speech problems, particularly when he is nervous or tired, during which he starts to slur his words. The patient also experienced a significant traumatic event when a close friend in his house, which he reported as having a profound impact on him. He expressed that this event has caused him considerable distress and may have contributed to his current situation. In terms of substance use, the patient reported that he smokes cigarettes and marijuana. He used to consume alcohol but stopped after his strokes. He denied any history of using other drugs such as cocaine or amphetamines and has never been to a rehabilitation center. The patient described his mood as pretty good on the day of the consultation. He reported feeling a bit paranoid but denied any current thoughts of self-harm or harm to others. He also denied experiencing hallucinations. He attributed most of his issues to the societal disregard and mistreatment of homeless individuals. The patient has never been diagnosed with any mental health conditions and has never taken any medication for mental health. He has also never received any mental health treatment before. He expressed no intention of starting any medication for mental health. In terms of his personal life, the patient has been twice, with his longest relationship lasting ten years. He has no children. He holds a BA in [employer] from the [employer]. He has one sister who is currently in assisted. His relationship with his father is strained, and he preferred not to discuss it further. The patient's current situation appears to be a combination of physical health issues, traumatic experiences, and socio-economic challenges. His resilience in the face of these adversities is noteworthy. Mental health history The patient has no prior history of mental health treatment or diagnosis. He has never been to a psychiatric hospital or taken medication for mental health. He has experienced recent bereavement, with a friend dying in his house, which has significantly affected him. Social history The patient is currently homeless and has been for seven months. He previously worked at [employer] but has been unable to work since suffering multiple strokes. He receives some financial support but it is not sufficient for housing. He has been twice, with the longest relationship lasting ten years. He has no children. He has a BA in [place] from the [employer]. He has a sister who is currently in assisted and a father with whom he has a strained relationship. He has a history of smoking cigarettes and cannabis, and used to consume alcohol before his strokes. He has no history of other drug use or rehab. Hospital Course Hospital Course He acclimated to the individual, group and milieu therapies provided. He presented having had struggles recently with homelessness after having significant success in his life prior to having multiple strokes. He started having some suicidal thinking and came to the hospital in hopes to get assistance with that and community resources. He was continued on his current medications which included Remeron and he was also given Vistaril and trazodone at discharge for anxiety and sleep respectively as needed. He tolerated the medication without difficulty and had a positive response. He worked with the social work team for appropriate outpatient follow-up and was able to get some residential assistance at [facility] which [facility] a local [facility] that actually 1 can stay long-term with payment. This was a good fit because he does have resources but does not significant resources that would allow him to do his going to an apartment or something. He had significant improvement during the stay and was able to contract for safety outside the hospital prior to discharge. During the hospitalization, the patient had routine laboratory studies which were within normal limits except for a few outliers. Additionally, there was a general medical evaluation which was also within normal limits and revealed no new acute processes. At the time of discharge, he denied lethality or psychosis. Mood and anxiety were well managed. The patient endorsed a plan to avoid all drugs of abuse and follow up with the aftercare recommendations of the treatment team. The patient was evaluated and deemed to be absent credible lethality and had achieved the maximum benefit from an inpatient hospitalization, and so was discharged. Involuntary Hold Information 96 Hour Hold: 96 Hour Involuntary Admission: Yes 96 Hour Hold Ending Date: 01/21/24 96 Hour Hold Ending Time: 00:01 Other Hold: Hold End Date: 01/28/24 Mental Status Exam MSE Comments: This is a thin but well-nourished well-developed white male in hospital scrubs adequate grooming and limited eye contact. No abnormal movements except for psychomotor retardation and a noticeable limp demonstrating left sided weakness likely sequela from reported strokes. Additionally there may have been a motor tic in the form of a throat clearing. ?He was cooperative with exam in mild to moderate distress.? Speech was decreased rate and volume with a possible tic of a throat clearing at the end of statements.? Mood described as as depressed, his affect was congruent and subdued. Thought process was linear. Thought content: Patient denied current suicidal or homicidal ideation. There were no delusions reported or but some paranoia noted, he denied auditory or visual hallucinations. Attention and concentration were adequate and memory was mostly reliable but none were formally tested.? He is alert and oriented x 3.? Insight and judgment were limited and impulse control was impaired. Discharge Data Studies Completed and Pending: Laboratory Results WBC 6.09 10^3/uL (3.2 9-11.43) 01/14/24 18:57 RBC 4.72 10^6/uL (3.8 5-5.65) 01/14/24 18:57 Hgb 14.90 g/dL (11.27 -16.99) 01/14/24 18:57 Hct 43.2 % (37-53) 01/14/24 18:57 MCV 91.5 fl (82-101) 01/14/24 18:57 MCH 31.6 pg (27-33) 01/14/24 18:57 MCHC 34.5 g/dL (30-55) 01/14/24 18:57 RDW 13.3 % (12.1-15.1 ) 01/14/24 18:57 Plt Count 160 10^3/cmm (157 -399) 01/14/24 18:57 MPV 10.2 fL (7.4-10.4 ) 01/14/24 18:57 Neut % (Auto) 59.5 % 01/14/24 18:57 Lymph % (Auto) 28.9 % 01/14/24 18:57 Levy % (Auto) 6.7 % 01/14/24 18:57 Eos % (Auto) 3.6 % 01/14/24 18:57 Baso % (Auto) 1.1 % 01/14/24 18:57 Neut # (Auto) 3.62 10^3/uL (1.8 -7.7) 01/14/24 18:57 Lymph # (Auto) 1.8 10^3/uL (0.8- 4.8) 01/14/24 18:57 Levy # (Auto) 0.4 10^3/uL (0.2- 0.9) 01/14/24 18:57 Eos # (Auto) 0.2 10^3/uL (0.0- 0.8) 01/14/24 18:57 Baso # (Auto) 0.1 10^3/uL (0.0- 0.1) 01/14/24 18:57 Nucleated RBC % (a uto) 0 % 01/14/24 18:57 Nucleated RBCs # 0.0 /100WBC 01/14/24 18:57 Sodium 142 mmol/L (136-1 45) 01/14/24 18:57 Potassium 4.3 mmol/L (3.5-5 .1) 01/14/24 18:57 Chloride 103 mmol/L (98-10 7) 01/14/24 18:57 Carbon Dioxide 30 mmol/L (22-29) H 01/14/24 18:57 Anion Gap 13.3 (5-19) 01/14/24 18:57 BUN 12 mg/dL (6-20) 01/14/24 18:57 Creatinine 0.9 mg/dL (0.7-1. 2) 01/14/24 18:57 GFR Calculation 86.7 mL/min (90-1 30) L 01/14/24 18:57 Glucose 106 mg/dL (65-115 ) 01/14/24 18:57 Calculated Osmolal ity 294 mOsm/kg (285- 295) 01/14/24 18:57 Calcium 8.6 mg/dL (8.5-10 .5) 01/14/24 18:57 Total Bilirubin 0.3 mg/dL (0.15-1 .2) 01/14/24 18:57 AST 17 U/L (0-40) 01/14/24 18:57 ALT 12 U/L (0-41) 01/14/24 18:57 Alkaline Phosphata se 96 U/L (40-130) 01/14/24 18:57 Total Protein 5.6 g/dL (6.6-8.7 ) L 01/14/24 18:57 Albumin 3.9 g/dL (3.5-5.2 ) 01/14/24 18:57 Globulin 1.7 g/dL (1.3-4.6 ) 01/14/24 18:57 Salicylates < 0.3 mg/dL (3-10 ) L 01/14/24 18:57 Urine Opiates Scre en Negative ng/mL (N egative) 01/14/24 18:15 Acetaminophen < 5.0 ug/mL (10-3 0) L 01/14/24 18:57 Ur Barbiturates Sc reen Negative ng/mL (N egative) 01/14/24 18:15 Ur Phencyclidine S crn Negative ng/mL (N egative) 01/14/24 18:15 Ur Amphetamines Sc reen Negative ng/mL (N egative) 01/14/24 18:15 U Benzodiazepines Scrn Negative ng/mL (N egative) 01/14/24 18:15 Urine Cocaine Scre en Negative ng/mL (N egative) 01/14/24 18:15 U Marijuana (THC) Screen Positive ng/mL (N egative) H 01/14/24 18:15 Ethyl Alcohol < 10 mg/dL (0-10) 01/14/24 18:57 Vitals: Last Vital Signs Temp 98.0 F 01/19/24 06:00 Pulse 66 01/19/24 06:00 Resp 17 01/19/24 06:00 BP 123/73 01/19/24 06:00 Pulse Ox 96 01/19/24 06:00 O2 Del Method Room Air 01/18/24 13:43 Discharge Plan Discharge Patient Disposition: Home Condition: Stable Prescriptions: New trazodone 50 mg Tablet 50 mg PO BEDTIME PRN (Reason: Sleep) 30 Days Qty: 30 1RF hydroxyzine pamoate 25 mg Capsule 50 mg PO Q6H PRN (Reason: Anxiety) 30 Days Qty: 30 1RF Continued atorvastatin 80 mg tablet 80 mg PO QPM 30 Days Qty: 30 1RF clopidogrel 75 mg tablet 75 mg PO QPM 30 Days Qty: 30 1RF amlodipine 5 mg tablet 5 mg PO QPM 30 Days Qty: 30 1RF aspirin 81 mg Tablet,Delayed Release (Dr/Ec) 81 mg PO QPM 30 Days Qty: 30 1RF mirtazapine 7.5 mg tablet 7.5 mg PO QPM 30 Days Qty: 30 1RF Discharge Orders: Discharge Order (Routine); Ordered 01/19/24 Ordered By: Mark Evans Referrals: [facility] [Other] - 01/19/24 12:00 pm [facility] [Outside] - 01/24/24 7:30 am (Initial assessment for services with Jojo) Patient Instructions: Trazodone (By mouth), Hydroxyzine (By mouth), PTSD (Post Traumatic Stress Disorder) (DC), Suicide Prevention (DC), Opioid Safety Discharge Attestations NPU Time Spent in Discharge Care*: less than 30 min Specific Discharge Activities: Specific discharge activities: educating patient, discussing with therapeutic case manager/social workers/dc planners, documenting/other paperwork and evaluating patient/reviewing data Coding Level of Care Code Acute Code for Chg Fwd Diagnoses Suicidal ideation R45.851 Adjustment disorder with mixed disturbance of emotions and conduct F43.25 PTSD (post-traumatic stress disorder) F43.10 Depression F32.A
[2024-01-19 09:21] VITALS: BP 123/73; PULSE 66; RESP 16; TEMP 36.6; O2SAT 96
== END 2024-01-19 12:39 | disposition home or self-care (01) | DRG 881 ==
LOC: ER 17:21 → NP 19:53
PROVIDERS: Admitting Provider Psychiatry & Neurology Psychiatry; Emergency Provider Emergency Medicine; Visit Provider Psychiatry & Neurology Psychiatry
DX: F32.A Depression, unspecified (principal); R45.851 Suicidal ideations; Z59.01 Sheltered homelessness; F17.210 Nicotine dependence, cigarettes, uncomplicated; F12.90 Cannabis use, unspecified, uncomplicated; F43.25 Adjustment disorder with mixed disturbance of emotions and conduct; F43.10 Post-traumatic stress disorder, unspecified; Z79.02 Long term (current) use of antithrombotics/antiplatelets; Z79.82 Long term (current) use of aspirin; Z86.73 Personal history of transient ischemic attack (TIA), and cerebral infarction without residual deficits
CPT/HCPCS: 36415; 80053; 80306; 80307; 85025; 90471; 90686; 97150; 97165; 99285

== ENCOUNTER 2024-02-07 14:41 | Emergency (ER) | payer MEDICARE, SELFPAY ==
[2024-02-07 14:50] VITALS: BP 131/82; PULSE 62; TEMP 36.4; O2SAT 96; BMI 15.8
--- NOTE | 2024-02-07 15:08 | ECG_ITS ---
[facility] 2024[facility]07 Pat Name: Jhon Wallace Department: Room: Gender: Male Administrator: : [id number] Requested By: Nasreen Wilkerson Order Number: [id number] Lashon MD: Wan Aburto M.D. Measurements Intervals Vaughn Rate: 61 P: 76 WA: 174 QRS: 66 QRSD: 105 T: 156 QT: 439 QTc: 444 Interpretive Statements SINUS RHYTHM MODERATE T-WAVE ABNORMALITY, CONSIDER INFERIOR ISCHEMIA [-0.1+ mV T-WAVE IN II/aVF] Compared to ECG 01/14/2024 06:31:30 T-wave abnormality now present Possible ischemia now present Ventricular premature complex(es) no longer present Electronically Signed On 02-07-2024 17:57:19 HEARING AID REPAIR TECHNICIAN by Wan Aburto M.D. [email or web address]
--- NOTE | 2024-02-07 15:10 | W.ED.PSYCHS ---
HPI - Psych General: Chief Complaint: Psychiatric Symptoms Stated Complaint: mhe Time Seen by Provider: 02/07/24 14:45 Source: patient Mode of arrival: ambulatory Limitations: no limitations History of Present Illness: 58-year-old male states he has been suicidal last 2 days he states he has a plan of stepping out into traffic. Patient has a history of depression PTSD has been admitted in the past. States he is currently not taking any meds. Associated symptoms: Reports depression and suicidal ideation Related Data Previous Rx's Medication Instructions Recorded amlodipine 5 mg tablet 5 mg PO QPM 30 days #30 tabs 01/19/24 aspirin 81 mg tablet,delayed 81 mg PO QPM 30 days #30 tabs 01/19/24 release atorvastatin 80 mg tablet 80 mg PO QPM 30 days #30 tabs 01/19/24 clopidogrel 75 mg tablet 75 mg PO QPM 30 days #30 tabs 01/19/24 hydroxyzine pamoate 25 mg capsule 50 mg (2 x 25 mg) PO Q6H PRN 01/19/24 Anxiety 30 days #30 caps mirtazapine 7.5 mg tablet 7.5 mg PO QPM 30 days #30 tabs 01/19/24 trazodone 50 mg tablet 50 mg PO BEDTIME PRN Sleep 30 days 01/19/24 #30 tabs Allergies Allergy/AdvReac Type Severity Reaction Status Date / Time Penicillins Allergy ALGY-Anaphy Verified 02/07/24 14:56 laxis seafood Allergy ALGY-Anaphy Uncoded 02/07/24 14:56 laxis Review of Systems Const: Denies: fever(s), chills, body aches or change in appetite ENMT: Denies: throat pain or dental pain Card: Denies: chest pain Resp: Denies: dyspnea GI: Denies: abdominal pain, nausea, vomiting or diarrhea Musc: Denies: neck pain or back pain Skin/Breast: Denies: rash Neuro: Denies: headache(s) Psych: Reports: depression and suicidal ideation [facility] ED PFSH: Medical History History of CVA in adulthood Physical Exam Const: COMMON NORMALS: no acute distress, patient oriented x3 and healthy appearing HENMT: COMMON NORMALS: normocephalic and atraumatic HEAD & SCALP: normocephalic and atraumatic Eye: COMMON NORMALS: conjunctivae normal CONJUNCTIVA: Yes conjunctivae normal Neck/C-Spine: COMMON NORMALS: full ROM and supple Chest: COMMONS NORMALS: normal inspection of the chest Resp: COMMON NORMALS: normal respiratory effort Cardio: COMMON NORMALS: regular rate, regular rhythm and No murmurs present (Cardio) RATE: regular rate RHYTHM: regular rhythm Extremity: COMMON NORMALS: normal to inspection and full ROM Neuro: COMMON NORMALS: patient oriented x3, moves all extremities and no focal motor deficits Psych: COMMON NORMALS: mental status grossly normal and cooperative THOUGHT CONTENT: Yes Suicidality present Skin: COMMON NORMALS: no rashes or lesions noted and no wounds GENERAL SKIN EXAM: no rashes or lesions noted Course Vital Signs: Vital signs: Vital Signs Temperature 98.4 F 02/08/24 00:35 Pulse Rate 55 L 02/08/24 00:35 Respiratory Rate 17 02/08/24 00:35 Blood Pressure 125/78 02/08/24 00:35 Pulse Oximetry 96 02/08/24 00:35 Oxygen Delivery Me thod Room Air 02/08/24 00:35 MDM - Psych Medical Decision Making Patient presents here with suicidal ideations he is placed on a 96-hour hold will transfer due to bed availability. Medical Records I reviewed the patient's medical records. Lab Data I reviewed the patient's lab results. 02/07/24 16:19 02/07/24 16:19 Laboratory Results WBC 4.36 10^3/uL (3.29-11.43) 02/07/24 16:19 RBC 5.14 10^6/uL (3.85-5.65) 02/07/24 16:19 Hgb 15.50 g/dL (11.27-16.99) 02/07/24 16:19 Hct 45.6 % (37-53) 02/07/24 16:19 MCV 88.7 fl (82-101) 02/07/24 16:19 MCH 30.2 pg (27-33) 02/07/24 16:19 MCHC 34.0 g/dL (30-55) 02/07/24 16:19 RDW 13.0 % (12.1-15.1) 02/07/24 16:19 Plt Count 184 10^3/cmm (157-399) 02/07/24 16:19 MPV 9.7 fL (7.4-10.4) 02/07/24 16:19 Neut % (Auto) 54.3 % 02/07/24 16:19 Lymph % (Auto) 31.7 % 02/07/24 16:19 [place] % (Auto) 8.7 % 02/07/24 16:19 Eos % (Auto) 3.7 % 02/07/24 16:19 Baso % (Auto) 1.4 % 02/07/24 16:19 Neut # (Auto) 2.37 10^3/uL (1.8-7.7) 02/07/24 16:19 Lymph # (Auto) 1.4 10^3/uL (0.8-4.8) 02/07/24 16:19 [place] # (Auto) 0.4 10^3/uL (0.2-0.9) 02/07/24 16:19 Eos # (Auto) 0.2 10^3/uL (0.0-0.8) 02/07/24 16:19 Baso # (Auto) 0.1 10^3/uL (0.0-0.1) 02/07/24 16:19 Nucleated RBC % (auto) 0 % 02/07/24 16:19 Nucleated RBCs # 0.0 /100WBC 02/07/24 16:19 Sodium 140 mmol/L (136-145) 02/07/24 16:19 Potassium 3.6 mmol/L (3.5-5.1) 02/07/24 16:19 Chloride 103 mmol/L (98-107) 02/07/24 16:19 Carbon Dioxide 29 mmol/L (22-29) 02/07/24 16:19 Anion Gap 11.6 (5-19) 02/07/24 16:19 BUN 10 mg/dL (6-20) 02/07/24 16:19 Creatinine 0.7 mg/dL (0.7-1.2) 02/07/24 16:19 GFR Calculation 115.8 mL/min (90-130) 02/07/24 16:19 Glucose 78 mg/dL (65-115) 02/07/24 16:19 Calculated Osmolality 288 mOsm/kg (285-295) 02/07/24 16:19 Calcium 9.0 mg/dL (8.5-10.5) 02/07/24 16:19 Total Bilirubin 0.7 mg/dL (0.15-1.2) 02/07/24 16:19 AST 21 U/L (0-40) 02/07/24 16:19 ALT 19 U/L (0-41) 02/07/24 16:19 Alkaline Phosphatase 96 U/L (40-130) 02/07/24 16:19 Total Protein 6.7 g/dL (6.6-8.7) 02/07/24 16:19 Albumin 4.2 g/dL (3.5-5.2) 02/07/24 16:19 Globulin 2.5 g/dL (1.3-4.6) 02/07/24 16:19 Salicylates < 0.3 mg/dL (3-10) L 02/07/24 16:19 Urine Opiates Screen Negative ng/mL (Negative) 02/07/24 16:50 Acetaminophen < 5.0 ug/mL (10-30) L 02/07/24 16:19 Ur Barbiturates Screen Negative ng/mL (Negative) 02/07/24 16:50 Ur Phencyclidine Scrn Negative ng/mL (Negative) 02/07/24 16:50 Ur Amphetamines Screen Negative ng/mL (Negative) 02/07/24 16:50 U Benzodiazepines Scrn Negative ng/mL (Negative) 02/07/24 16:50 Urine Cocaine Screen Negative ng/mL (Negative) 02/07/24 16:50 U Marijuana (THC) Screen Positive ng/mL (Negative) H 02/07/24 16:50 Ethyl Alcohol < 10 mg/dL (0-10) 02/07/24 16:19 Coronavirus (PCR) Negative (Negative) 02/07/24 16:15 Influenza A (PCR) Negative (Negative) 02/07/24 16:15 Influenza Type B (PCR) Negative (Negative) 02/07/24 16:15 RSV (PCR) Negative (Negative) 02/07/24 16:15 No radiology studies performed this visit Discharge Plan Discharge Patient Disposition: Xfer Psychiatric Hosp Clinical Impression: Suicidal ideation Condition: Stable Coding Level of Care Code ED [employer] Installer for Roseanne Linares
[2024-02-07 16:25] LABS: Basophils # 0.1 10^3/uL (0.0-0.1); Basophils % 1.4 %; Eosinophils # 0.2 10^3/uL (0.0-0.8); Eosinophils % 3.7 %; Hematocrit 45.6 % (37-53); Lymphocytes # 1.4 10^3/uL (0.8-4.8); Lymphocytes % 31.7 %; Mean Corpuscular Hemoglobin 30.2 pg (27-33); Mean Corpuscular Volume 88.7 fl (82-101); Mean Platelet Volume 9.7 fL (7.4-10.4); Monocytes # 0.4 10^3/uL (0.2-0.9); Monocytes % 8.7 %; Neutrophils # 2.37 10^3/uL (1.8-7.7); Neutrophils % 54.3 %; Nucleated Red Blood Cells % 0 %; Platelet Count 184 10^3/cmm (157-399); Red Blood Count 5.14 10^6/uL (3.85-5.65); White Blood Count 4.36 10^3/uL (3.29-11.43)
[2024-02-07 16:54] LABS: Covid PCR NEGATIVE (Negative); Influenza A NEGATIVE (Negative); Influenza B NEGATIVE (Negative); Respiratory Syncytial Virus Ce NEGATIVE (Negative)
[2024-02-07 16:57] LABS: Alanine Aminotransferase 19 U/L (0-41); Albumin Level 4.2 g/dL (3.5-5.2); Alkaline Phosphatase 96 U/L (40-130); Anion Gap 11.6 (5-19); Aspartate Amino Transferase 21 U/L (0-40); Blood Urea Nitrogen 10 mg/dL (6-20); Carbon Dioxide 29 mmol/L (22-29); Chloride 103 mmol/L (98-107); Creatinine Clr Calc Pharmacy 88.5584; Globulin 2.5 g/dL (1.3-4.6); Glomerular Filtration Rate 115.8 mL/min (90-130); Glucose 78 mg/dL (65-115); Osmolality Calculated 288 mOsm/kg (285-295); Potassium 3.6 mmol/L (3.5-5.1); Sodium 140 mmol/L (136-145); Total Bilirubin 0.7 mg/dL (0.15-1.2); Total Protein 6.7 g/dL (6.6-8.7)
[2024-02-07 16:58] LABS: Acetaminophen < 5.0 ug/mL (10-30); Alcohol Level < 10 mg/dL (0-10); Salicylate < 0.3 mg/dL (3-10)
[2024-02-07 18:07] VITALS: BP 130/78; PULSE 55; O2SAT 94
[2024-02-07 18:42] LABS: Amphetamines Screen Urine Negative (Negative); Barbiturates Screen Urine Negative (Negative); Benzodiazepines Screen Urine Negative (Negative); Cocaine Screen Urine Negative (Negative); Opiate Screen Urine Negative (Negative); PCP Screen Urine Negative (Negative); THC Screen Urine Positive (Negative)
--- NOTE | 2024-02-07 18:55 | PC.NURSE ---
96 hr rights reviewed with patient @[id number] with assistance of [facility] information systems security officer Levi Tran All education reviewed. No verbalized questions or concerns made to HS at this time. Patient rights copy left with pt @bedside. No further verbalized needs. Water provided to pt.
--- NOTE | 2024-02-07 22:27 | PC.NURSE ---
[place] at [facility] declined pt. Reason for declination is due to the requirement of a court ordered involuntary hold at this facility.
[2024-02-07] MEDS: mirtazapine 15 mg Tablet 7.5 MG PO (23:43)
[2024-02-07] MEDS: trazodone 50 mg Tablet PO (23:43)
[2024-02-07] MEDS: clopidogrel 75 mg Tablet PO (23:43)
[2024-02-07] MEDS: amlodipine 5 mg Tablet PO (23:43)
[2024-02-07] MEDS: aspirin 81 mg Chew Tablet PO (23:43)
[2024-02-07] MEDS: atorvastatin 40 mg Tablet 80 MG PO (23:43)
[2024-02-08] MEDS: ibuprofen 600 mg Tablet PO (00:31)
[2024-02-08 00:35] VITALS: BP 125/78; PULSE 55; RESP 17; TEMP 36.9; O2SAT 96
[2024-02-08 15:16] VITALS: BP 125/85; PULSE 65; O2SAT 99
[2024-02-08 15:17] VITALS: BP 125/85; PULSE 65; O2SAT 99
== END 2024-02-08 15:35 ==
PROVIDERS: Emergency Provider Emergency Medicine
DX: R45.851 Suicidal ideations (principal); Z11.52 Encounter for screening for COVID-19
CPT/HCPCS: 0241U; 36415; 80053; 80306; 80307; 85025; 93005; 99285

== ENCOUNTER 2024-03-12 17:35 | Emergency (ER) | payer MEDICARE, SELFPAY ==
[2024-03-12 17:48] VITALS: BP 123/73; PULSE 71; RESP 18; TEMP 36.7; O2SAT 93
--- NOTE | 2024-03-12 18:20 | ED.C_ITS ---
HPI - Psych 2 General: Chief Complaint: Psychiatric Symptoms Stated Complaint: SI Time Seen by Provider: 03/12/24 17:52 Source: patient Mode of arrival: ambulatory Limitations: no limitations History of Present Illness: Patient is a 58-year-old male who presents to the emergency department on 96- hour hold from crisis center due to suicidal ideations. He was seen here on 02/06 for the same complaint, was transferred due to lack of beds here. Patient states he was sent to [facility] and stayed for 8 days, discharge felt okay but he is homeless and thoughts of suicide have crept back up again. Has the same plan, which is to jump in front of a moving car or moving train. States he has not been taking his medications compliantly and has actually ran out of a few. He is unsure of what he was prescribed oral if any medications were changed from [facility]. He is overall poor historian, repeats multiple times the phrase drawbacks of being a multiple stroke survivor. He is difficult to redirect when he goes off on tangents, though he is not reporting any homicidal ideations. On asking without any hallucinations, he avoids this question and does not answer. He states that he needs to see psychiatrist again. MD complaint: suicidal ideation Duration: getting worse History of same: Yes Exacerbating factors: other (Homelessness) Associated symptoms: Reports suicidal ideation; Deny homicidal ideation If self harm: admits thoughts of self harm and has plan Details of plan: Jump in front of a moving car or moving train Related Data Previous Rx's Medication Instructions Recorded amlodipine 5 mg tablet 5 mg PO QPM 30 days #30 tabs 01/19/24 aspirin 81 mg tablet,delayed 81 mg PO QPM 30 days #30 tabs 01/19/24 release atorvastatin 80 mg tablet 80 mg PO QPM 30 days #30 tabs 01/19/24 clopidogrel 75 mg tablet 75 mg PO QPM 30 days #30 tabs 01/19/24 hydroxyzine pamoate 25 mg capsule 50 mg (2 x 25 mg) PO Q6H PRN 01/19/24 Anxiety 30 days #30 caps mirtazapine 7.5 mg tablet 7.5 mg PO QPM 30 days #30 tabs 01/19/24 trazodone 50 mg tablet 50 mg PO BEDTIME PRN Sleep 30 days 01/19/24 #30 tabs Allergies Allergy/AdvReac Type Severity Reaction Status Date / Time Penicillins Allergy ALGY-Anaphy Verified 02/07/24 14:56 laxis seafood Allergy ALGY-Anaphy Uncoded 02/07/24 14:56 laxis Review of Systems 2 General: Reports: 10 or more systems reviewed and unremarkable except in HPI and below Const: Denies: fever(s), chills or fatigue Eyes: Denies: change in vision ENMT: Denies: throat pain, ear or mastoid pain or nasal discharge Card: Denies: chest pain, palpitations, swelling of feet/ankles or lightheadedness Resp: Denies: dyspnea, productive cough or wheezing GI: Denies: abdominal pain, nausea, vomiting, diarrhea or constipation : Denies: flank pain, difficulty urinating, dysuria or urinary frequency Musc: Denies: neck pain, back pain or joint pain Skin/Breast: Denies: rash Neuro: Denies: headache(s), numbness in extremities or weakness in extremities Psych: Reports: suicidal ideation; Denies: homicidal ideation PFSH ED 2 PFSH: Medical History History of CVA in adulthood Physical Exam 2 Const: COMMON NORMALS: no acute distress, patient oriented x3 and no limitations GENERAL APPEARANCE: cooperative and well developed O RIENTATION/CONSCIOUSNESS: Yes awake, Yes oriented to person, Yes oriented to place and Yes oriented to time HENMT: COMMON NORMALS: normocephalic, atraumatic and hearing grossly normal bilaterally HEAD & SCALP: normocephalic and atraumatic Eye: COMMON NORMALS: Equal, round and reactive pupils present, EOMs intact bilaterally and conjunctivae normal CONJUNCTIVA: Yes conjunctivae normal P UPIL: Yes Equal, round and reactive pupils present Neck/C-Spine: COMMON NORMALS: full ROM, supple and no JVD Resp: COMMON NORMALS: normal respiratory effort, No retractions, No use of accessory muscles and clear to auscultation bilaterally AUSCULTATION: clear to auscultation bilaterally Cardio: COMMON NORMALS: no JVD, regular rate, regular rhythm, No clicks present (Cardio), No murmurs present (Cardio) and No rub (Cardio) RATE: r egular rate RHYTHM: regular rhythm GI: COMMON NORMALS: Normal to inspection, nondistended, normoactive bowel sounds present, Soft to palpation and non-tender AUSCULTATION: Yes normoactive bowel sounds PALPATION: Yes Soft to palpation RECTAL EXAM: Yes deferred Extremity: COMMON NORMALS: normal to inspection, full ROM and capillary refill normal Neuro: COMMON NORMALS: patient oriented x3, moves all extremities, no focal motor deficits and no sensory deficits noted SENSORIUM/ORIENTATION: Yes oriented to person, Yes oriented to place and Yes oriented to time Psych: COMMON NORMALS: mental status grossly normal APPEARANCE: Yes grossly normal ATTITUDE: Yes calm ACTIVITY/MOTOR BEHAVIOR: Yes appropriate eye contact SPEECH: Yes loud THOUGHT PROCESS: Tangential thought process present THOUGHT CONTENT: Yes Suicidality present and No Homicidality present Skin: COMMON NORMALS: no rashes or lesions noted GENERAL SKIN EXAM: no rashes or lesions noted Course 2 Vital Signs: Vital signs: Vital Signs Temperature 98.1 F 03/12/24 17:48 Pulse Rate 89 03/12/24 19:07 Respiratory Rate 18 03/12/24 17:48 Blood Pressure 121/82 03/12/24 19:07 Pulse Oximetry 96 03/12/24 19:07 [facility] - Psych Medical Decision Making Patient cleared medically will be transferred to psychiatric facility as we are full on beds here. Lab Data 03/12/24 18:52 03/12/24 18:52 Radiology Impressions Chest X-Ray 03/12/24 19:24 IMPRESSION: No evidence for an acute cardiopulmonary process. Laboratory Results WBC 7.03 10^3/uL (3.29-11.43) 03/12/24 18:52 RBC 4.99 10^6/uL (3.85-5.65) 03/12/24 18:52 Hgb 15.10 g/dL (11.27-16.99) 03/12/24 18:52 Hct 45.0 % (37-53) 03/12/24 18:52 MCV 90.2 fl (82-101) 03/12/24 18:52 MCH 30.3 pg (27-33) 03/12/24 18:52 MCHC 33.6 g/dL (30-55) 03/12/24 18:52 RDW 13.2 % (12.1-15.1) 03/12/24 18:52 Plt Count 199 10^3/cmm (157-399) 03/12/24 18:52 MPV 9.8 fL (7.4-10.4) 03/12/24 18:52 Neut % (Auto) 58.4 % 03/12/24 18:52 Lymph % (Auto) 30.7 % 03/12/24 18:52 [place] % (Auto) 6.5 % 03/12/24 18:52 Eos % (Auto) 3.0 % 03/12/24 18:52 Baso % (Auto) 1.3 % 03/12/24 18:52 Neut # (Auto) 4.10 10^3/uL (1.8-7.7) 03/12/24 18:52 Lymph # (Auto) 2.2 10^3/uL (0.8-4.8) 03/12/24 18:52 [place] # (Auto) 0.5 10^3/uL (0.2-0.9) 03/12/24 18:52 Eos # (Auto) 0.2 10^3/uL (0.0-0.8) 03/12/24 18:52 Baso # (Auto) 0.1 10^3/uL (0.0-0.1) 03/12/24 18:52 Nucleated RBC % (auto) 0 % 03/12/24 18:52 Nucleated RBCs # 0.0 /100WBC 03/12/24 18:52 Sodium 138 mmol/L (136-145) 03/12/24 18:52 Potassium 3.9 mmol/L (3.5-5.1) 03/12/24 18:52 Chloride 102 mmol/L (98-107) 03/12/24 18:52 Carbon Dioxide 24 mmol/L (22-29) 03/12/24 18:52 Anion Gap 15.9 (5-19) 03/12/24 18:52 BUN 12 mg/dL (6-20) 03/12/24 18:52 Creatinine 0.9 mg/dL (0.7-1.2) 03/12/24 18:52 GFR Calculation 86.7 mL/min (90-130) L 03/12/24 18:52 Glucose 117 mg/dL (65-115) H 03/12/24 18:52 Calculated Osmolality 287 mOsm/kg (285-295) 03/12/24 18:52 Calcium 9.1 mg/dL (8.5-10.5) 03/12/24 18:52 Total Bilirubin 0.2 mg/dL (0.15-1.2) 03/12/24 18:52 AST 13 U/L (0-40) 03/12/24 18:52 ALT 10 U/L (0-41) 03/12/24 18:52 Alkaline Phosphatase 96 U/L (40-130) 03/12/24 18:52 Total Protein 6.8 g/dL (6.6-8.7) 03/12/24 18:52 Albumin 4.2 g/dL (3.5-5.2) 03/12/24 18:52 Globulin 2.6 g/dL (1.3-4.6) 03/12/24 18:52 Urine Color Yellow (Yellow) 03/12/24 18:12 Urine Appearance Clear (CLEAR) 03/12/24 18:12 Urine pH 5.5 (5-7) 03/12/24 18:12 Ur Specific [place] 1.024 (1.005-1.030) 03/12/24 18:12 Urine Protein Negative (Negative) 03/12/24 18:12 Urine Glucose (UA) Negative (Normal) 03/12/24 18:12 Urine Ketones Trace (Negative) 03/12/24 18:12 Urine Blood Trace (Negative) A 03/12/24 18:12 Urine Nitrate Negative (Negative) 03/12/24 18:12 Urine Bilirubin Negative (Negative) 03/12/24 18:12 Urine Urobilinogen 1.0 mg/dL (Negative) 03/12/24 18:12 Ur Leukocyte Esterase Negative (Negative) 03/12/24 18:12 Urine RBC 6-10 /hpf (0-2) 03/12/24 18:12 Urine WBC 0-5 /hpf (0-5) 03/12/24 18:12 Ur Squamous Epith Cells 0-5 /hpf (0-5) 03/12/24 18:12 Amorphous Sediment Not Reportable 03/12/24 18:12 Urine Bacteria None seen /hpf (NONE) 03/12/24 18:12 Hyaline Casts 0.81 /lpf 03/12/24 18:12 Salicylates < 0.3 mg/dL (3-10) L 03/12/24 18:52 Urine Opiates Screen Negative ng/mL (Negative) 03/12/24 18:12 Acetaminophen < 5.0 ug/mL (10-30) L 03/12/24 18:52 Ur Barbiturates Screen Negative ng/mL (Negative) 03/12/24 18:12 Ur Phencyclidine Scrn Negative ng/mL (Negative) 03/12/24 18:12 Ur Amphetamines Screen Negative ng/mL (Negative) 03/12/24 18:12 U Benzodiazepines Scrn Negative ng/mL (Negative) 03/12/24 18:12 Urine Cocaine Screen Negative ng/mL (Negative) 03/12/24 18:12 U Marijuana (THC) Screen Positive ng/mL (Negative) H 03/12/24 18:12 Ethyl Alcohol < 10 mg/dL (0-10) 03/12/24 18:52 Influenza Type A Ag negative (Negative) 03/12/24 21:02 Influenza Type B Ag negative (Negative) 03/12/24 21:02 SARS-CoV-2 Ag (Rapid) negative (Negative) 03/12/24 19:35 All radiology interpretation(s) finalized by discharge Discharge Plan Discharge Patient Disposition: Xfer Psychiatric Hosp Clinical Impression: Suicidal ideation Condition: Stable Coding Level of Care Code ED Html Web Developer for Roseanne Linares
--- NOTE | 2024-03-12 18:52 | PC.NURSE ---
96 hour hold rights read and reviewed with patient. Wali from security present during reading of rights. Patient verbalized understandings and copy of rights given to patient.
[2024-03-12 18:54] LABS: Amphetamines Screen Urine Negative (Negative); Barbiturates Screen Urine Negative (Negative); Benzodiazepines Screen Urine Negative (Negative); Cocaine Screen Urine Negative (Negative); Opiate Screen Urine Negative (Negative); PCP Screen Urine Negative (Negative); THC Screen Urine Positive (Negative)
[2024-03-12 19:00] LABS: Basophils # 0.1 10^3/uL (0.0-0.1); Basophils % 1.3 %; Eosinophils # 0.2 10^3/uL (0.0-0.8); Lymphocytes # 2.2 10^3/uL (0.8-4.8); Lymphocytes % 30.7 %; Mean Corpuscular HGB Conc 33.6 g/dL (30-55); Mean Corpuscular Hemoglobin 30.3 pg (27-33); Mean Corpuscular Volume 90.2 fl (82-101); Mean Platelet Volume 9.8 fL (7.4-10.4); Monocytes # 0.5 10^3/uL (0.2-0.9); Monocytes % 6.5 %; Neutrophils % 58.4 %; Nucleated Red Blood Cells % 0 %; Platelet Count 199 10^3/cmm (157-399); Red Blood Count 4.99 10^6/uL (3.85-5.65); Red Cell Distribution Width 13.2 % (12.1-15.1); White Blood Count 7.03 10^3/uL (3.29-11.43)
[2024-03-12 19:07] VITALS: BP 121/82; PULSE 89; O2SAT 96
[2024-03-12 19:21] LABS: Acetaminophen < 5.0 ug/mL (10-30); Alanine Aminotransferase 10 U/L (0-41); Albumin Level 4.2 g/dL (3.5-5.2); Alcohol Level < 10 mg/dL (0-10); Alkaline Phosphatase 96 U/L (40-130); Anion Gap 15.9 (5-19); Aspartate Amino Transferase 13 U/L (0-40); Blood Urea Nitrogen 12 mg/dL (6-20); Calcium 9.1 mg/dL (8.5-10.5); Carbon Dioxide 24 mmol/L (22-29); Chloride 102 mmol/L (98-107); Globulin 2.6 g/dL (1.3-4.6); Glomerular Filtration Rate 86.7 mL/min (90-130); Glucose 117 mg/dL (65-115); Osmolality Calculated 287 mOsm/kg (285-295); Potassium 3.9 mmol/L (3.5-5.1); Salicylate < 0.3 mg/dL (3-10); Sodium 138 mmol/L (136-145); Total Bilirubin 0.2 mg/dL (0.15-1.2); Total Protein 6.8 g/dL (6.6-8.7)
--- NOTE | 2024-03-12 19:24 | XRR_ITS ---
PROCEDURE INFORMATION: Exam: XR Chest Exam date and time: 03/12/2024 7:34 PM Age: 58 years old Clinical indication: Other: Placement; Additional info: Psych placement TECHNIQUE: Imaging protocol: Radiologic exam of the chest. Views: 1 view. COMPARISON: No relevant prior studies available. FINDINGS: Tubes, catheters and devices: None. Lungs: The lungs appear clear. Pleural spaces: No pleural effusion. No pneumothorax. Heart/Mediastinum: Mediastinum and dominga appear unremarkable. Bones/joints: No acute bony abnormality identified. XR/XR chest 1V portable [id number] IMPRESSION: No evidence for an acute cardiopulmonary process.
--- NOTE | 2024-03-12 19:29 | ECG_ITS ---
[facility] Test Date: 2024-03-12 Pat Name: Jhon Wallace Department: Room: Gender: Male Salesforce Developer: : 1965 Requested By: Jovan Salmeron Order Number: [id number] Lashon MD: Johnny Johnson M.D. Measurements Intervals [place] Rate: 70 P: 61 NJ: 187 QRS: 54 QRSD: 105 T: 74 QT: 402 QTc: 435 Interpretive Statements SINUS RHYTHM Compared to ECG 02/07/2024 15:24:28 T-wave abnormality no longer present Possible ischemia no longer present Electronically Signed On 03-13-2024 18:29:10 SECURITY SYSTEM ENGINEER by Johnny Johnson M.D. [email or web address]
[2024-03-12 19:40] LABS: Bilirubin Urine Negative (Negative); Blood Urine Trace (Negative); Glucose Urine UA Negative (Normal); Ketones Urine Trace (Negative); Leukocyte Esterase Urine Negative (Negative); Nitrate Urine Negative (Negative); Protein Urine Negative (Negative); Specific Gravity, Urine 1.024 (1.005-1.030); Urine Appearance Clear (CLEAR); Urine Color Yellow (Yellow); pH Urine 5.5 (5-7)
[2024-03-12 19:44] LABS: Add Urine Microscopic? YES; Bacteria Urine None Seen /hpf; Hyaline Casts Urine 0.81 /lpf; Squamous Epithelial Cell Urine 0-5 /hpf (0-5); WBC Urine 0-5 /hpf (0-5)
[2024-03-12 20:00] VITALS: BP 121/82; PULSE 89; O2SAT 96
[2024-03-12 20:05] LABS: SARS Covid-2 Antigen negative (Negative)
[2024-03-12 21:25] LABS: Influenza A by IFA negative (Negative); Influenza B by IFA negative (Negative)
[2024-03-13 04:47] VITALS: BP 104/61; PULSE 57; O2SAT 97
--- NOTE | 2024-03-13 06:36 | PC.NURSE ---
this nurse called report to [place] @[id number]. I spoke to Nadege Messina RN. Pt signed consent form to transfer.
--- NOTE | 2024-03-13 07:00 | PC.NURSE ---
pt changed into green paper scrubs, resting in room 5; PSA outside room; respirations even and unlabored
--- NOTE | 2024-03-13 07:19 | PC.PHAR ---
patient should be out of all medications, last filled 01/18 30 days for his meds. pharmacy confirms what we currently have on file
[2024-03-13 15:09] VITALS: BP 122/74; PULSE 69; O2SAT 97
== END 2024-03-13 15:10 ==
PROVIDERS: Emergency Provider Physician Assistant
DX: R45.851 Suicidal ideations (principal); Z11.52 Encounter for screening for COVID-19; Z86.73 Personal history of transient ischemic attack (TIA), and cerebral infarction without residual deficits
CPT/HCPCS: 36415; 71045; 80053; 80306; 80307; 81001; 85025; 87426; 87804; 93005; 99285

== ENCOUNTER 2024-08-18 15:05 | Inpatient (IN) | payer MEDICARE, SELFPAY ==
[2024-08-18 15:06] VITALS: BP 151/97; PULSE 66; RESP 16; TEMP 36.6; O2SAT 96; BMI 19.1
--- NOTE | 2024-08-18 15:19 | W.ED.PSYCHS ---
HPI - Psych General: Chief Complaint: Psychiatric Symptoms Stated Complaint: SI Time Seen by Provider: 08/18/24 15:11 Source: patient Mode of arrival: EMS Limitations: no limitations History of Present Illness: Patient is a 59-year-old male presents to ED today from the crisis center with 96-hour hold paperwork. According to the hold paperwork patient made several suicidal statements that he was going to kill himself by laying on a train track. He reported that he does have guns in his home. He is reportedly off of his psychiatric medications. He has had thoughts of not wanting to be alive anymore. He reported to them that he had thoughts more than half of the days of the month of killing himself with plans of intent. They reported abnormal thinking and flight of ideas. He stated that he is completely alone in this fucking world . Upon my assessment with the patient, he is agitated and wanting to leave and denying claims of the affidavit. MD complaint: suicidal ideation and feels depressed Onset (ago): week(s) Duration: constant History of same: Yes Relieving factors: none Context: not taking psychiatric medications Associated psychiatric symptoms: depression and suicidal ideation Associated symptoms: Reports depression and suicidal ideation; Deny auditory hallucinations, visual hallucinations or homicidal ideation Treatments prior to arrival: placed on mental health hold If self harm: admits thoughts of self harm and has plan Related Data Home Medications ?Medication ?Instructions ?Recorded ?Confirmed atorvastatin 20 mg tablet 20 mg PO BEDTIME 08/18/24 08/18/24 escitalopram oxalate 10 mg tablet 10 mg PO QAM 08/18/24 08/18/24 Previous Rx's ?Medication ?Instructions ?Recorded amlodipine 5 mg tablet 5 mg PO QPM 30 days #30 tabs 01/19/24 aspirin 81 mg tablet,delayed 81 mg PO QPM 30 days #30 tabs 01/19/24 release clopidogrel 75 mg tablet 75 mg PO QPM 30 days #30 tabs 01/19/24 hydroxyzine pamoate 25 mg capsule 50 mg (2 x 25 mg) PO Q6H PRN 06/19/24 Anxiety 30 days #30 caps mirtazapine 7.5 mg tablet 7.5 mg PO QPM 30 days #30 tabs 06/19/24 trazodone 50 mg tablet 50 mg PO BEDTIME PRN Sleep 30 days 06/19/24 #30 tabs Allergies Allergy/AdvReac Type Severity Reaction Status Date / Time Penicillins Allergy ALGY-Anaphy Verified 08/18/24 13:12 laxis seafood Allergy ALGY-Anaphy Uncoded 05/20/24 09:55 laxis Review of Systems Const: Denies: fever(s) or chills Card: Denies: chest pain, palpitations, lightheadedness or syncope Resp: Denies: dyspnea GI: Denies: abdominal pain, nausea, vomiting or diarrhea Skin/Breast: Denies: rash Neuro: Denies: headache(s) Psych: Reports: anxiety, depression, hopelessness and suicidal ideation; Denies: visual hallucinations, auditory hallucinations or homicidal ideation PFSH ED PFSH: Medical History Major depressive disorder, recurrent episode, moderate with anxious distress Major depressive disorder, recurrent, moderate The client endorses thoughts of suicide, feeling inferior, depressed mood, fatigue, insomnia, and little interest in doing things. He could not think of a time that symptoms listed were not prevalent. The client has been experiencing a depressed mood since 2019 after he suffered his first of five strokes. Psychiatric care History of CVA in adulthood Social History Smoking and tobacco/nicotine status: current every day tobacco/nicotine user Alcohol intake: never Substance/Drug Use: current Adopted: No Caregiver/support person: No Lives independently: Yes Household members: none Housing: Apartment Marital status: Number of children: 0 Highest education level completed: Associate Degree: Academic Program service: No Current occupational status: unemployed Current occupational exposures/hazards: No Pets and animals: Yes Pets & animals: cat(s) Leisure activites: exercise and other Leisure activities details: watch TV Sexually active: No Do you think of yourself as: Straight/Heterosexual Current gender identity: Male Marimar/Moravian: Episcopal Special marimar needs: No Agree to transfusion: Yes Physical Exam Const: COMMON NORMALS: no acute distress, patient oriented x3, alert and well nourished GENERAL APPEARANCE: cooperative Resp: COMMON NORMALS: normal respiratory effort and clear to auscultation bilaterally AUSCULTATION: clear to auscultation bilaterally Cardio: COMMON NORMALS: regular rate and regular rhythm RATE: regular rate RHYTHM: regular rhythm Neuro: COMMON NORMALS: patient oriented x3 SENSORIUM/ORIENTATION: Yes alert Psych: COMMON NORMALS: mental status grossly normal, Normal thought process present, cooperative, normal affect, speech normal, activity/motor behavior normal, denies hallucinations and denies homicidal ideation APPEARANCE: Yes grossly normal ATTITUDE: Yes agitated ACTIVITY/MOTOR BEHAVIOR: Yes appropriate eye contact and No psychomotor agitation SPEECH: Yes normal speech MOOD & AFFECT: Yes hostile affect THOUGHT PROCESS: Normal thought process present THOUGHT CONTENT: Yes Suicidality present ATTENTION/CONCENTRATION: Yes attention grossly intact and Yes concentration grossly intact MEMORY/COGNITION: Yes memory grossly intact and Yes cognition grossly intact INSIGHT: Fair insight present (Psych) JUDGEMENT: Fair judgement present (Psych) Course Vital Signs: Vital signs: Vital Signs Temperature 98.6 F 08/19/24 06:00 Pulse Rate 67 08/19/24 06:00 Respiratory Rate 18 08/19/24 06:00 Blood Pressure 109/72 08/19/24 06:00 Pulse Oximetry 97 08/19/24 06:00 Oxygen Delivery Me thod Room Air 08/19/24 06:00 MDM - Psych Medical Decision Making Plan will be for patient to be admitted to [facility]. He is on a 96-hour hold. Currently awaiting callback from Dr. Evans. Medical Records I reviewed the patient's medical records. Lab Data I reviewed the patient's lab results. 08/18/24 15:46 08/18/24 15:46 Laboratory Results WBC 4.97 10^3/uL (3.29-11.43) 08/18/24 15:46 RBC 5.39 10^6/uL (3.85-5.65) 08/18/24 15:46 Hgb 16.40 g/dL (11.27-16.99) 08/18/24 15:46 Hct 47.8 % (37-53) 08/18/24 15:46 MCV 88.7 fl (82-101) 08/18/24 15:46 MCH 30.4 pg (27-33) 08/18/24 15:46 MCHC 34.3 g/dL (30-55) 08/18/24 15:46 RDW 13.7 % (12.1-15.1) 08/18/24 15:46 Plt Count 192 10^3/cmm (157-399) 08/18/24 15:46 MPV 10.3 fL (7.4-10.4) 08/18/24 15:46 Neut % (Auto) 41.1 % 08/18/24 15:46 Lymph % (Auto) 43.9 % 08/18/24 15:46 [place] % (Auto) 8.2 % 08/18/24 15:46 Eos % (Auto) 5.2 % 08/18/24 15:46 Baso % (Auto) 1.6 % 08/18/24 15:46 Neut # (Auto) 2.04 10^3/uL (1.8-7.7) 08/18/24 15:46 Lymph # (Auto) 2.2 10^3/uL (0.8-4.8) 08/18/24 15:46 [place] # (Auto) 0.4 10^3/uL (0.2-0.9) 08/18/24 15:46 Eos # (Auto) 0.3 10^3/uL (0.0-0.8) 08/18/24 15:46 Baso # (Auto) 0.1 10^3/uL (0.0-0.1) 08/18/24 15:46 Nucleated RBC % (auto) 0 % 08/18/24 15:46 Nucleated RBCs # 0.0 /100WBC 08/18/24 15:46 Sodium 141 mmol/L (136-145) 08/18/24 15:46 Potassium 3.9 mmol/L (3.5-5.1) 08/18/24 15:46 Chloride 102 mmol/L (98-107) 08/18/24 15:46 Carbon Dioxide 26 mmol/L (22-29) 08/18/24 15:46 Anion Gap 16.9 (5-19) 08/18/24 15:46 BUN 14 mg/dL (6-20) 08/18/24 15:46 Creatinine 0.8 mg/dL (0.7-1.2) 08/18/24 15:46 GFR Calculation 98.9 mL/min (90-130) 08/18/24 15:46 Glucose 97 mg/dL (65-115) 08/18/24 15:46 Calculated Osmolality 292 mOsm/kg (285-295) 08/18/24 15:46 Calcium 9.5 mg/dL (8.5-10.5) 08/18/24 15:46 Total Bilirubin 0.3 mg/dL (0.15-1.2) 08/18/24 15:46 AST 17 U/L (0-40) 08/18/24 15:46 ALT 10 U/L (0-41) 08/18/24 15:46 Alkaline Phosphatase 88 U/L (40-130) 08/18/24 15:46 Total Protein 7.4 g/dL (6.6-8.7) 08/18/24 15:46 Albumin 4.3 g/dL (3.5-5.2) 08/18/24 15:46 Globulin 3.1 g/dL (1.3-4.6) 08/18/24 15:46 Salicylates < 0.3 mg/dL (3-10) L 08/18/24 15:46 Urine Opiates Screen Negative ng/mL (Negative) 08/18/24 15:45 Acetaminophen < 5.0 ug/mL (10-30) L 08/18/24 15:46 Ur Barbiturates Screen Negative ng/mL (Negative) 08/18/24 15:45 Ur Phencyclidine Scrn Negative ng/mL (Negative) 08/18/24 15:45 Ur Amphetamines Screen Negative ng/mL (Negative) 08/18/24 15:45 U Benzodiazepines Scrn Negative ng/mL (Negative) 08/18/24 15:45 Urine Cocaine Screen Negative ng/mL (Negative) 08/18/24 15:45 U Marijuana (THC) Screen Positive ng/mL (Negative) H 08/18/24 15:45 Ethyl Alcohol < 10 mg/dL (0-10) 08/18/24 15:46 No radiology studies performed this visit Discharge Plan Discharge Patient Disposition: Admitted As Inpatient Admit Provider: Mark Evans Clinical Impression: Involuntary commitment, Suicidal ideation Condition: Stable Coding Level of Care Code ED Dietetic Technician Registered for Roseanne Linares
[2024-08-18 15:58] LABS: Basophils # 0.1 10^3/uL (0.0-0.1); Basophils % 1.6 %; Eosinophils # 0.3 10^3/uL (0.0-0.8); Eosinophils % 5.2 %; Hematocrit 47.8 % (37-53); Lymphocytes # 2.2 10^3/uL (0.8-4.8); Lymphocytes % 43.9 %; Mean Corpuscular HGB Conc 34.3 g/dL (30-55); Mean Corpuscular Hemoglobin 30.4 pg (27-33); Mean Corpuscular Volume 88.7 fl (82-101); Mean Platelet Volume 10.3 fL (7.4-10.4); Monocytes # 0.4 10^3/uL (0.2-0.9); Monocytes % 8.2 %; Neutrophils # 2.04 10^3/uL (1.8-7.7); Neutrophils % 41.1 %; Nucleated Red Blood Cells % 0 %; Platelet Count 192 10^3/cmm (157-399); Red Blood Count 5.39 10^6/uL (3.85-5.65); Red Cell Distribution Width 13.7 % (12.1-15.1); White Blood Count 4.97 10^3/uL (3.29-11.43)
[2024-08-18 16:18] LABS: Alanine Aminotransferase 10 U/L (0-41); Albumin Level 4.3 g/dL (3.5-5.2); Alkaline Phosphatase 88 U/L (40-130); Anion Gap 16.9 (5-19); Aspartate Amino Transferase 17 U/L (0-40); Blood Urea Nitrogen 14 mg/dL (6-20); Calcium 9.5 mg/dL (8.5-10.5); Carbon Dioxide 26 mmol/L (22-29); Chloride 102 mmol/L (98-107); Creatinine Clr Calc Pharmacy 92.4905; Globulin 3.1 g/dL (1.3-4.6); Glomerular Filtration Rate 98.9 mL/min (90-130); Glucose 97 mg/dL (65-115); Osmolality Calculated 292 mOsm/kg (285-295); Potassium 3.9 mmol/L (3.5-5.1); Sodium 141 mmol/L (136-145); Total Bilirubin 0.3 mg/dL (0.15-1.2); Total Protein 7.4 g/dL (6.6-8.7)
[2024-08-18 16:23] LABS: Acetaminophen < 5.0 ug/mL (10-30); Alcohol Level < 10 mg/dL (0-10); Salicylate < 0.3 mg/dL (3-10)
[2024-08-18 16:26] LABS: Amphetamines Screen Urine Negative (Negative); Barbiturates Screen Urine Negative (Negative); Benzodiazepines Screen Urine Negative (Negative); Cocaine Screen Urine Negative (Negative); Opiate Screen Urine Negative (Negative); PCP Screen Urine Negative (Negative); THC Screen Urine Positive (Negative)
--- NOTE | 2024-08-18 17:00 | PC.NURSE ---
96 hr rights reviewed with pt @[id number] with assistance of [facility] campus police officer Levi Holt. All education reviewed with pt at this time. Pt verbalized understanding but also stated that he was not going to be staying the full 4 days , and continued to introduce his self to staff as that crazy mother fucker . He also repeatedly would tell staff that he was going to fight them if they attempted to try and keep him from leaving. HS had to stop pt from leaving ER by EMS doors. Security at bedside with pt. Pt copy was left with pt at bedside. Pt changed into green scrubs, and placed with 1:1 sitter. Pt declined any beverage or snack when asked by HS.
[2024-08-18 17:21] VITALS: BP 149/98; PULSE 61; RESP 17; TEMP 36.4; O2SAT 96
[2024-08-18 20:19] VITALS: BP 136/88; PULSE 62; RESP 18; TEMP 36.8; O2SAT 96
[2024-08-18] MEDS: haloperidol 5 mg Tablet PO (21:02)
[2024-08-18] MEDS: trazodone 50 mg Tablet PO (21:03)
[2024-08-18] MEDS: nicotine 2 mg Gum BUCCAL (21:05)
[2024-08-19 06:00] VITALS: BP 109/72; PULSE 67; RESP 18; TEMP 37; O2SAT 97
--- NOTE | 2024-08-19 06:10 | W.PM.NPUH&PS ---
Providers/Chief Complaint Admitting Physician: Mark Evans MD Chief Complaint: SI HPI NPU History of Present Illness Jhon Wallace is a 59 year old male who presented to the emergency department with the following report: Chief Complaint: Psychiatric Symptoms Stated Complaint: SI Time Seen by Provider: 08/18/24 15:11 Source: patient Mode of arrival: EMS Limitations: no limitations History of Present Illness: Patient is a 59-year-old male presents to ED today from the crisis center with 96-hour hold paperwork. According to the hold paperwork patient made several suicidal statements that he was going to kill himself by laying on a train track. He reported that he does have guns in his home. He is reportedly off of his psychiatric medications. He has had thoughts of not wanting to be alive anymore. He reported to them that he had thoughts more than half of the days of the month of killing himself with plans of intent. They reported abnormal thinking and flight of ideas. He stated that he is completely alone in this fucking world . Upon my assessment with the patient, he is agitated and wanting to leave and denying claims of the affidavit. complaint: suicidal ideation and feels depressed Onset (ago): week(s) Duration: constant History of same: Yes Relieving factors: none Context: not taking psychiatric medications Associated psychiatric symptoms: depression and suicidal ideation Associated symptoms: Reports depression and suicidal ideation; Deny auditory hallucinations, visual hallucinations or homicidal ideation Treatments prior to arrival: placed on mental health hold If self harm: admits thoughts of self harm and has plan He was admitted to the neuropsychiatric unit for definitive treatment of those issues. He is known to [facility] inpatient and outpatient services. He has had 1 inpatient stay an excerpt of that discharge summary from last fall is included below for context and the fact that there have been no substantive changes. He reports that he does not need to be here. He reports that essentially he was having conversation with crisis services and he was asked the question about lethality that he thought was being spoken in the theoretical and not what is he going to do shortly. He endorses that he is not suicidal and has no desire to kill himself. He reports that he has not been taking his medication but is not necessarily against the idea. He understands that he is on a 96-hour hold and we need to get collateral information but we did discuss that he appears much better than he was during his hospitalization. He denied any other issues and reported that he wanted to leave as soon as possible. Per his 01/19/2024 [facility] inpatient psychiatric discharge summary: Diagnoses at Discharge Discharge Diagnosis (1) Suicidal ideation: Status: Acute (2) Adjustment disorder with mixed disturbance of emotions and conduct: Status: Acute (3) PTSD (post-traumatic stress disorder): Status: Acute (4) Depression: Status: Acute Reason for Visit Reason for Visit: SI w/crisis center Brief History: History of Present Illness Jhon Wallace is a 58 year old male who presented to the emergency department with the following report: Chief Complaint: Psychiatric Symptoms Stated Complaint: SI w/crisis center Time Seen by Provider: 01/14/24 17:06 Source: patient Mode of arrival: ambulatory Limitations: no limitations History of Present Illness: 58-year-old male who sent here from crisis center under 96-hour hold for suicidal ideations he states he has been having severely increased depression has been having thoughts to kill himself by either shooting himself or stepping out in front of traffic. He denies any worse improved factors denies any previous admissions in the past. Associated symptoms: Reports depression and suicidal ideation He was admitted to the neuropsychiatric unit for definitive treatment of those issues. He is unknown to [facility] psychiatry through inpatient or outpatient services. He presented today reporting: Chief complaint The patient was recommended to seek help due to difficulties in managing life after suffering multiple strokes and becoming homeless. History of the present complaint The patient, currently homeless, was advised to seek help at the hospital by an acquaintance he met in the park. He has been homeless for approximately seven months and has been struggling to get back on his feet. He expressed that his mental health would significantly improve if he had a stable place to live. Prior to his current situation, the patient had a stable job at [employer] (?), which he lost after suffering multiple strokes. He mentioned that these strokes have caused him to have speech problems, particularly when he is nervous or tired, during which he starts to slur his words. The patient also experienced a significant traumatic event when a close friend in his house, which he reported as having a profound impact on him. He expressed that this event has caused him considerable distress and may have contributed to his current situation. In terms of substance use, the patient reported that he smokes cigarettes and marijuana. He used to consume alcohol but stopped after his strokes. He denied any history of using other drugs such as cocaine or amphetamines and has never been to a rehabilitation center. The patient described his mood as pretty good on the day of the consultation. He reported feeling a bit paranoid but denied any current thoughts of self-harm or harm to others. He also denied experiencing hallucinations. He attributed most of his issues to the societal disregard and mistreatment of homeless individuals. The patient has never been diagnosed with any mental health conditions and has never taken any medication for mental health. He has also never received any mental health treatment before. He expressed no intention of starting any medication for mental health. In terms of his personal life, the patient has been twice, with his longest relationship lasting ten years. He has no children. He holds a BA in [place] from the [employer]. He has one sister who is currently in nursing home. His relationship with his father is strained, and he preferred not to discuss it further. The patient's current situation appears to be a combination of physical health issues, traumatic experiences, and socio-economic challenges. His resilience in the face of these adversities is noteworthy. Mental health history The patient has no prior history of mental health treatment or diagnosis. He has never been to a psychiatric hospital or taken medication for mental health. He has experienced recent bereavement, with a friend dying in his house, which has significantly affected him. Social history The patient is currently homeless and has been for seven months. He previously worked at [employer] (?) but has been unable to work since suffering multiple strokes. He receives some financial support but it is not sufficient for housing. He has been twice, with the longest relationship lasting ten years. He has no children. He has a BA in [place] from the [employer]. He has a sister who is currently in nursing home and a father with whom he has a strained relationship. He has a history of smoking cigarettes and cannabis, and used to consume alcohol before his strokes. He has no history of other drug use or rehab. Hospital Course He acclimated to the individual, group and milieu therapies provided. He presented having had struggles recently with homelessness after having significant success in his life prior to having multiple strokes. He started having some suicidal thinking and came to the hospital in hopes to get assistance with that and community resources. He was continued on his current medications which included Remeron and he was also given Vistaril and trazodone at discharge for anxiety and sleep respectively as needed. He tolerated the medication without difficulty and had a positive response. He worked with the social work team for appropriate outpatient follow-up and was able to get some residential assistance at [facility] which is a local skilled nursing that actually 1 can stay long-term with payment. This was a good fit because he does have resources but does not significant resources that would allow him to do his going to an apartment or something. He had significant improvement during the stay and was able to contract for safety outside the hospital prior to discharge. During the hospitalization, the patient had routine laboratory studies which were within normal limits except for a few outliers. Additionally, there was a general medical evaluation which was also within normal limits and revealed no new acute processes. At the time of discharge, he denied lethality or psychosis. Mood and anxiety were well managed. The patient endorsed a plan to avoid all drugs of abuse and follow up with the aftercare recommendations of the treatment team. The patient was evaluated and deemed to be absent credible lethality and had achieved the maximum benefit from an inpatient hospitalization, and so was discharged. Meds NPU Home Medications ?Medication ?Instructions ?Recorded ?Confirmed ?Last Taken ?Type amlodipine 5 mg tablet 5 mg PO QPM 30 days #30 tabs 01/19/24 08/18/24 Unknown Rx aspirin 81 mg tablet,delayed 81 mg PO QPM 30 days #30 tabs 01/19/24 08/18/24 Unknown Rx release clopidogrel 75 mg tablet 75 mg PO QPM 30 days #30 tabs 01/19/24 08/18/24 Unknown Rx hydroxyzine pamoate 25 mg capsule 50 mg (2 x 25 mg) PO Q6H PRN 06/19/24 08/18/24 Unknown Rx Anxiety 30 days #30 caps mirtazapine 7.5 mg tablet 7.5 mg PO QPM 30 days #30 tabs 06/19/24 08/18/24 Unknown Rx trazodone 50 mg tablet 50 mg PO BEDTIME PRN Sleep 30 days 06/19/24 08/18/24 Unknown Rx #30 tabs atorvastatin 20 mg tablet 20 mg PO BEDTIME 08/18/24 08/18/24 Unknown History escitalopram oxalate 10 mg tablet 10 mg PO QAM 08/18/24 08/18/24 Unknown History Allergies Allergy/AdvReac Type Severity Reaction Status Date / Time Penicillins Allergy ALGY-Anaphy Verified 08/18/24 13:12 laxis seafood Allergy ALGY-Anaphy Uncoded 05/20/24 09:55 laxis PFSH NPU PFSH: Medical History Major depressive disorder, recurrent episode, moderate with anxious distress Major depressive disorder, recurrent, moderate The client endorses thoughts of suicide, feeling inferior, depressed mood, fatigue, insomnia, and little interest in doing things. He could not think of a time that symptoms listed were not prevalent. The client has been experiencing a depressed mood since 2019 after he suffered his first of five strokes. Psychiatric care History of CVA in adulthood Social History Smoking and tobacco/nicotine status: current every day tobacco/nicotine user Alcohol intake: never Substance/Drug Use: current Adopted: No Caregiver/support person: No Lives independently: Yes Household members: none Housing: Apartment Marital status: Number of children: 0 Highest education level completed: Associate Degree: Academic Program service: No Current occupational status: unemployed Current occupational exposures/hazards: No Pets and animals: Yes Pets & animals: cat(s) Leisure activites: exercise and other Leisure activities details: watch TV Sexually active: No Do you think of yourself as: Straight/Heterosexual Current gender identity: Male Marimar/Confucianist: Shinto Special marimar needs: No Agree to transfusion: Yes Mental Status Exam MSE Comments: This is a thin but well-nourished well-developed white male in hospital scrubs adequate grooming and limited eye contact. No abnormal movements except for psychomotor retardation and a noticeable limp demonstrating left sided weakness likely sequela from reported strokes. Additionally there may have been a motor tic in the form of a throat clearing. ?He was cooperative with exam in mild to moderate distress.? Speech was decreased rate and volume with a possible tic of a throat clearing at the end of statements.? Mood described as as fine, his affect was congruent . Thought process was linear. Thought content: Patient denied current suicidal or homicidal ideation. There were no delusions reported or but some paranoia noted, he denied auditory or visual hallucinations. Attention and concentration were adequate and memory was mostly reliable but none were formally tested.? He is alert and oriented x 3.? Insight and judgment were limited and impulse control was impaired. Vitals/I&O/Wt Last Vital Signs Temp 98.2 F 08/18/24 20:19 Pulse 62 08/18/24 20:19 Resp 18 08/18/24 20:19 BP 136/88 08/18/24 20:19 Pulse Ox 96 08/18/24 20:19 O2 Del Method Room Air 08/18/24 20:19 Weight last 48 hrs Weight 65.771 kg Data NPU 08/18/24 15:46 08/18/24 15:46 A&P Assessment and plan (1) Suicidal ideation: (2) Adjustment disorder with mixed disturbance of emotions and conduct: (3) PTSD (post-traumatic stress disorder): (4) Depression: Plan This is a 59-year-old white male with a recent inpatient stay back in January and outpatient services since then who presents reporting that he is unaware of why his statements were misinterpreted. He reports that they were having a conversation about lethality and he essentially stated what he would do if he were going to kill himself but denied any lethality at this point. The patient continues to deal with substantial psychosocial stressors, including financial and residential challenges and post-cerebrovascular accident sequelae. 1. Continue current medications. 2. Continue to-15 minute checks, 3.? Encourage individual, group and milieu therapy. 4.? Will attempt to gather collateral information. 5. obtain collateral information. 6. Evaluate against the backdrop of the 96-hour hold. PDMP PDMP Reviewed: Not Reviewed Involuntary Hold Information Hold Status: Legal Status: 96 Hour Hold Date/Time Hold Expires: 08/25/24@1530 96 Hour Hold: 96 Hour Involuntary Admission: Yes Other Hold: Hold End Date: 01/28/24 Attestations NPU Medical Necessity Statement*: Inpatient hospitalization is medically necessary and deemed to ?be ?the clinically appropriate intervention ?at this time.? We will monitor/initiate medications and make changes as indicated.? The patient will be in the hospital for over 2 midnights.? The patient?s likely length of stay 3-5 days. Coding Level of Care Code Acute Code for [facility] Fwd Diagnoses Suicidal ideation R45.851 Adjustment disorder with mixed disturbance of emotions and conduct F43.25 PTSD (post-traumatic stress disorder) F43.10 Depression F32.A
[2024-08-19 14:00] VITALS: BP 108/78; PULSE 56; RESP 18; TEMP 36.6; O2SAT 97
[2024-08-19 19:40] VITALS: BP 120/73; PULSE 95; RESP 18; TEMP 36.3; O2SAT 96
[2024-08-19] MEDS: trazodone 50 mg Tablet PO (20:18)
[2024-08-19] MEDS: haloperidol 5 mg Tablet PO (20:18)
[2024-08-20 06:00] VITALS: BP 116/79; PULSE 60; RESP 17; TEMP 36.6; O2SAT 96
[2024-08-20 14:00] VITALS: BP 118/81; PULSE 69; RESP 16; TEMP 36.6; O2SAT 95
--- NOTE | 2024-08-20 18:02 | P.NPUPN_ITS ---
Subjective NPU 2 Subjective: Patient presented today reporting that he is feeling fine and denied any need for continued hospitalization. He was however quite cooperative and identified that saying something that made somebody uncomfortable could lead to him having to stay early/figuring out that things are okay. We discussed the fact that there is definitely no plan to extend his hold. We continued to discuss whether he would be open to restarting his Lexapro or any other psychiatric medications he has been taking. Mental Status Exam 2 MSE Comments: This is a thin but well-nourished well-developed white male in hospital scrubs adequate grooming and limited eye contact. No abnormal movements except for psychomotor retardation and a noticeable limp demonstrating left sided weakness likely sequela from reported strokes. Additionally there may have been a motor tic in the form of a throat clearing. ?He was cooperative with exam in mild to moderate distress.? Speech was decreased rate and volume with a possible tic of a throat clearing at the end of statements.? Mood described as as fine, his affect was congruent . Thought process was linear. Thought content: Patient denied current suicidal or homicidal ideation. There were no delusions reported or but some paranoia noted, he denied auditory or visual hallucinations. Attention and concentration were adequate and memory was mostly reliable but none were formally tested.? He is alert and oriented x 3.? Insight and judgment were limited and impulse control was impaired. Vitals/I&O/Wt Last Vital Signs Temp 97.9 F 08/20/24 19:53 Pulse 66 08/20/24 19:53 Resp 18 08/20/24 19:53 BP 133/86 08/20/24 19:53 Pulse Ox 99 08/20/24 19:53 O2 Del Method Room Air 08/20/24 19:53 Data NPU 08/18/24 15:46 08/18/24 15:46 A&P Assessment and plan (1) Suicidal ideation: (2) Adjustment disorder with mixed disturbance of emotions and conduct: (3) PTSD (post-traumatic stress disorder): (4) Depression: Plan This is a 59-year-old white male with a recent inpatient stay back in January and outpatient services since then who presents reporting that he is unaware of why his statements were misinterpreted. He reports that they were having a conversation about lethality and he essentially stated what he would do if he were going to kill himself but denied any lethality at this point. The patient continues to deal with substantial psychosocial stressors, including financial and residential challenges and post-cerebrovascular accident sequelae. 1. Continue current medications. 2. Continue to-15 minute checks, 3.? Encourage individual, group and milieu therapy. 4.? Will attempt to gather collateral information. 5. obtain collateral information. 6. Evaluate against the backdrop of the 96-hour hold. PDMP PDMP Reviewed: Not Reviewed Involuntary Hold Information 2 Hold Status: Legal Status: 96 Hour Hold Date/Time Hold Expires: @1530 96 Hour Hold: 96 Hour Involuntary Admission: Yes Other Hold: Hold End Date: 01/28/24 Attestations NPU 2 Medical Necessity Statement*: Inpatient hospitalization is medically necessary and deemed to ?be ?the clinically appropriate intervention ?at this time.? We will monitor/initiate medications and make changes as indicated.? The patient?s likely length of stay 2-4 days. Coding Level of Care Code Acute Code for [facility] Fwd Diagnoses Suicidal ideation R45.851 Adjustment disorder with mixed disturbance of emotions and conduct F43.25 PTSD (post-traumatic stress disorder) F43.10 Depression F32.A
[2024-08-20] MEDS: nicotine 2 mg Gum BUCCAL ×2 (18:42→21:08)
[2024-08-20 19:53] VITALS: BP 133/86; PULSE 66; RESP 18; TEMP 36.6; O2SAT 99
[2024-08-20] MEDS: hyDROXYzine 25 mg Capsule 50 MG PO (21:08)
[2024-08-20] MEDS: trazodone 50 mg Tablet PO (21:08)
[2024-08-21 06:00] VITALS: BP 107/73; PULSE 62; RESP 17; TEMP 36.7; O2SAT 96
[2024-08-21] MEDS: nicotine 4 mg lozenge MUCOUS MEM (13:12)
[2024-08-21 14:00] VITALS: BP 139/88; PULSE 71; RESP 17; TEMP 36.7; O2SAT 96
[2024-08-21 16:27] VITALS: BP 139/88; PULSE 71; RESP 17; TEMP 36.7; O2SAT 98
--- NOTE | 2024-08-21 16:43 | DCPLANNER ---
IMM completed 08/21/2024 @ 3240 and pt was given a copy of rights.
== END 2024-08-21 16:52 | disposition home or self-care (01) | DRG 882 ==
LOC: ER 16:09 → NP 17:15
PROVIDERS: Admitting Provider Psychiatry & Neurology Psychiatry; Emergency Provider Physician Assistant; Visit Provider Psychiatry & Neurology Psychiatry
DX: F43.25 Adjustment disorder with mixed disturbance of emotions and conduct (principal); R45.851 Suicidal ideations; F43.10 Post-traumatic stress disorder, unspecified; F32.A Depression, unspecified; F17.210 Nicotine dependence, cigarettes, uncomplicated
CPT/HCPCS: 80053; 80061; 80306; 80307; 83036; 85025; 97150; 97165; 99285; J9999